=== PATIENT | male | born 1960 | race Caucasian/White ===

== ENCOUNTER 2019-12-27 09:13 | Outpatient (CLI) | payer OTHER, SELFPAY ==
[2019-12-27 09:31] LABS: Hematocrit 46.5 % (42.0-52.0); Hemoglobin 15.6 g/dL (14.0-18.0)
[2019-12-27 11:55] LABS: Alanine Aminotransferase 33 U/L (4-50); Albumin Level 4.5 g/dL (3.5-5.1); Alkaline Phosphatase 89 U/L (38-126); Aspartate Amino Transferase 34 U/L (17-59); Bilirubin,Total 0.6 mg/dL (0.2-1.3); Blood Urea Nitrogen 10 mg/dL (9-20); Calcium 9.7 mg/dL (8.4-10.2); Carbon Dioxide 27 mmol/L (22-30); Chloride 100 mmol/L (98-107); Cholesterol 237 mg/dL (0-200); Estimated Glomerular Filt Rate > 60; Glucose 108 mg/dL (75-110); HDL Direct 36 mg/dL; Potassium 4.3 mmol/L (3.4-5.0); Sodium 141 mmol/L (137-145); Triglycerides 281 mg/dL (<150)
[2019-12-27 12:05] LABS: LDL Cholesterol Direct 155 mg/dL
== END 2019-12-27 09:14 | disposition home or self-care (01) ==
LOC: ANHLAB 09:15
PROVIDERS: PCP Internal Medicine; Visit Provider Internal Medicine Hematology & Oncology
DX: Z13.6 Encounter for screening for cardiovascular disorders (principal); Z79.899 Other long term (current) drug therapy; D64.9 Anemia, unspecified; E78.5 Hyperlipidemia, unspecified
CPT/HCPCS: 36415; 80053; 80061; 85014; 85018

== ENCOUNTER 2020-05-07 09:36 | Outpatient (CLI) | payer OTHER, SELFPAY ==
[2020-05-07 13:00] LABS: Prostate Specific Antigen 0.1 ng/mL (< OR = 4.0)
== END 2020-05-07 09:37 | disposition home or self-care (01) ==
PROVIDERS: Nurse Practitioner Adult Health; PCP Internal Medicine; Visit Provider Internal Medicine Hematology & Oncology
DX: C61 Malignant neoplasm of prostate (principal)
CPT/HCPCS: 36415; 84153

== ENCOUNTER 2020-06-25 09:40 | Outpatient (CLI) | payer OTHER, SELFPAY ==
[2020-06-25 10:02] LABS: Basophils Absolute Auto 0.1 K/mm3 (0.0-0.1); Basophils Percent Auto 0.9 % (0.2-1.2); Eosinophils Absolute Auto 0.5 K/mm3 (0-0.3); Eosinophils Percent Auto 5.9 % (0-4.4); Hematocrit 45.8 % (42.0-52.0); Hemoglobin 15.4 g/dL (14.0-18.0); Immature Granulocyte Absolute 0.03 K/mm3 (0.00-0.031); Immature Granulocyte Percent A 0.3 % (0-0.5); Lymphocytes Absolute Auto 1.78 K/mm3 (0.9-3.2); Lymphocytes Percent Auto 20.3 % (18.3-44.2); Mean Corpuscular HGB Conc 33.6 g/dl (32-36); Mean Corpuscular Hemoglobin 31.7 pg (26-34); Mean Corpuscular Volume 94.2 fl (80-100); Mean Platelet Volume 8.3 fl (7.4-10.4); Monocytes Absolute Auto 0.9 K/mm3 (0.1-0.6); Monocytes Percent Auto 10.4 % (2.6-8.5); Neutrophils Absolute Auto 5.4 K/mm3 (1.3-6.7); Neutrophils Percent Auto 62.2 % (45.5-73.1); Platelet Count Result 323 k/mm3 (150-375); Red Blood Count 4.86 M/mm3 (4.6-6.20); Red Cell Distribution Width 12.3 % (11.5-14.5); White Blood Count 8.8 K/mm3 (4.5-10.0)
[2020-06-25 12:45] LABS: Alanine Aminotransferase 27 U/L (4-50); Albumin Level 4.5 g/dL (3.5-5.1); Alkaline Phosphatase 87 U/L (38-126); Anion Gap 13.4 mmol/L (7-16); Aspartate Amino Transferase 30 U/L (17-59); Bilirubin,Total 0.5 mg/dL (0.2-1.3); Blood Urea Nitrogen 17 mg/dL (9-20); Calcium 9.4 mg/dL (8.4-10.2); Carbon Dioxide 26 mmol/L (22-30); Chloride 102 mmol/L (98-107); Cholesterol 214 mg/dL (0-200); Estimated Glomerular Filt Rate > 60; Glucose 116 mg/dL (75-110); HDL Direct 34 mg/dL; Potassium 4.4 mmol/L (3.4-5.0); Sodium 137 mmol/L (137-145); Triglycerides 245 mg/dL (<150)
[2020-06-25 12:55] LABS: LDL Cholesterol Direct 130 mg/dL
[2020-06-25 13:12] LABS: Prostate Specific Antigen 0.1 ng/mL (< OR = 4.0)
== END 2020-06-25 09:41 | disposition home or self-care (01) ==
PROVIDERS: PCP Internal Medicine; Visit Provider Internal Medicine Hematology & Oncology
DX: E78.2 Mixed hyperlipidemia (principal); Z79.899 Other long term (current) drug therapy; D64.9 Anemia, unspecified; Z12.5 Encounter for screening for malignant neoplasm of prostate
CPT/HCPCS: 36415; 80053; 80061; 82248; 84153; 85025

== ENCOUNTER 2020-07-28 10:39 | Outpatient (CLI) | payer OTHER, SELFPAY ==
[2020-07-30 19:52] LABS: PSA, Free <0.01 ng/mL; PSA, Total 0.1 ng/mL (<=4.0)
== END 2020-07-28 10:40 | disposition home or self-care (01) ==
PROVIDERS: PCP Internal Medicine; Visit Provider Radiology Radiation Oncology
DX: C61 Malignant neoplasm of prostate (principal)
CPT/HCPCS: 36415; 84153; 84154

== ENCOUNTER 2020-12-25 09:18 | Outpatient (CLI) | payer OTHER, SELFPAY ==
[2020-12-25 09:36] LABS: Basophils Absolute Auto 0.1 K/mm3 (0.0-0.1); Basophils Percent Auto 0.9 % (0.2-1.2); Eosinophils Absolute Auto 0.5 K/mm3 (0-0.3); Eosinophils Percent Auto 5.6 % (0-4.4); Hematocrit 44.3 % (42.0-52.0); Hemoglobin 14.8 g/dL (14.0-18.0); Immature Granulocyte Absolute 0.04 K/mm3 (0.00-0.031); Immature Granulocyte Percent A 0.5 % (0-0.5); Lymphocytes Absolute Auto 2.05 K/mm3 (0.9-3.2); Lymphocytes Percent Auto 24.3 % (18.3-44.2); Mean Corpuscular HGB Conc 33.4 g/dl (32-36); Mean Corpuscular Hemoglobin 31.8 pg (26-34); Mean Corpuscular Volume 95.1 fl (80-100); Mean Platelet Volume 8.5 fl (7.4-10.4); Monocytes Absolute Auto 0.8 K/mm3 (0.1-0.6); Neutrophils Percent Auto 58.7 % (45.5-73.1); Platelet Count Result 317 k/mm3 (150-375); Red Blood Count 4.66 M/mm3 (4.6-6.20); Red Cell Distribution Width 12.2 % (11.5-14.5); White Blood Count 8.4 K/mm3 (4.5-10.0)
[2020-12-25 11:13] LABS: Alanine Aminotransferase 24 U/L (4-50); Albumin Level 4.2 g/dL (3.5-5.1); Alkaline Phosphatase 78 U/L (38-126); Anion Gap 9 mmol/L (8-16); Aspartate Amino Transferase 29 U/L (17-59); Bilirubin,Total 0.7 mg/dL (0.2-1.3); Blood Urea Nitrogen 15 mg/dL (9-20); Calcium 9.2 mg/dL (8.4-10.2); Carbon Dioxide 26 mmol/L (22-30); Chloride 107 mmol/L (98-107); Cholesterol 145 mg/dL (0-200); Estimated Glomerular Filt Rate > 60; Glucose 110 mg/dL (75-110); HDL Direct 35 mg/dL; Potassium 4.2 mmol/L (3.4-5.0); Sodium 142 mmol/L (137-145); Triglycerides 157 mg/dL (<150)
[2020-12-25 13:13] LABS: LDL Cholesterol Direct 82 mg/dL
[2020-12-25 13:34] LABS: Prostate Specific Antigen 0.1 ng/mL (< OR = 4.0)
[2020-12-25 13:38] LABS: Hemoglobin A1C 5.8 % (<5.7)
== END 2020-12-25 09:19 | disposition home or self-care (01) ==
PROVIDERS: PCP Internal Medicine; Visit Provider Nurse Practitioner
DX: D64.9 Anemia, unspecified (principal); R73.02 Impaired glucose tolerance (oral); E78.2 Mixed hyperlipidemia; Z85.46 Personal history of malignant neoplasm of prostate
CPT/HCPCS: 36415; 80053; 80061; 83036; 84153; 85025

== ENCOUNTER 2021-07-05 09:33 | Outpatient (CLI) | payer OTHER, SELFPAY ==
[2021-07-05 10:55] LABS: Alanine Aminotransferase 40 U/L (4-50); Albumin Level 4.7 g/dL (3.5-5.1); Alkaline Phosphatase 90 U/L (38-126); Anion Gap 7 mmol/L (8-16); Aspartate Amino Transferase 39 U/L (17-59); Bilirubin,Total 0.7 mg/dL (0.2-1.3); Blood Urea Nitrogen 17 mg/dL (9-20); Calcium 9.7 mg/dL (8.4-10.2); Carbon Dioxide 26 mmol/L (22-30); Chloride 102 mmol/L (98-107); Cholesterol 205 mg/dL (0-200); Estimated Glomerular Filt Rate > 60; Glucose 111 mg/dL (65-110); HDL Direct 38 mg/dL; Potassium 4.3 mmol/L (3.4-5.0); Sodium 135 mmol/L (137-145); Triglycerides 269 mg/dL (<150)
[2021-07-05 11:06] LABS: LDL Cholesterol Direct 105 mg/dL
[2021-07-05 11:17] LABS: Prostate Specific Antigen 0.3 ng/mL (< OR = 4.0)
== END 2021-07-05 09:34 | disposition home or self-care (01) ==
PROVIDERS: PCP Internal Medicine; Visit Provider Nurse Practitioner
DX: E78.5 Hyperlipidemia, unspecified (principal); Z12.5 Encounter for screening for malignant neoplasm of prostate; Z85.46 Personal history of malignant neoplasm of prostate
CPT/HCPCS: 36415; 80053; 80061; 84153

== ENCOUNTER 2021-08-25 15:59 | Emergency (ER) | payer OTHER, SELFPAY ==
--- NOTE | ~2021-08-25 | XR_ITS ---
EXAMINATION: XR hip RT 2V w AP pelvis EXAM DATE: 08/25/2021 16:41 INDICATION: No known recent injury provided at this time. Pain of the right hip. TECHNIQUE: Right hip frontal, 'frog leg' projections for interpretation. Frontal projection pelvis. There is no prior study for comparison. FINDINGS: Smooth right hip femoral head contour, no radiographic evidence of avascular necrosis. The re are no acute fractures or dislocations identified. There is no subcutaneous gas. The soft tissue is unremarkable. There are no radiopaque foreign bodies. There is mild bilateral hip primary oste oarthritis. IMPRESSION: Mild symmetric bilateral hip osteoarthritis. Reviewed, dictated and finalized at location A.
[2021-08-25 16:44] VITALS: BP 147/84; PULSE 81; RESP 14; TEMP 36.6; O2SAT 99
--- NOTE | 2021-08-25 18:03 | ED.LOWEXIN ---
HPI - Extremity Injury (Lower) General Chief Complaint: Extremity Injury, Lower Stated Complaint: right hip pain Time Seen by Provider: 08/25/21 17:59 Source: patient, family and RN notes reviewed Mode of arrival: ambulatory Limitations: no limitations History of Present Illness HPI Narrative: 3 days ago patient was working in his backyard with a lot of lifting and pushing, 50 to 100 pound weight, later at that day started having pain at the right iliac crest laterally and lateral side of the right thigh. Worse with certain movement, better with certain positions. Patient denies any fever, chills, nausea, vomiting, bowel dysfunction, bladder dysfunction, altered sensation, focal weakness, or saddle numbness, Related Data Home Medications Medication Instructions Recorded Confirmed cholecalciferol (vitamin D3) 50 2,000 unit PO DAILY 01/01/20 08/24/21 mcg (2,000 unit) capsule tadalafil 20 mg tablet 20 mg PO DAILY PRN 01/01/20 08/24/21 Allergies Allergy/AdvReac Type Severity Reaction Status Date / Time No Known Allergies Allergy Unknown Verified 08/24/21 11:19 Review of Systems Review of Systems: CONSTITUTIONAL: Denies fever, chills, or sweats. EYES: Denies visual changes, redness, or discharge. ENT: Denies rhinorrhea, congestion, sore throat, or otalgia. CARDIOVASCULAR: Denies chest pain, palpitations, or edema. RESPIRATORY: Denies cough or dyspnea. GASTROINTESTINAL: Denies abdominal pain, nausea, vomiting, or diarrhea. GENITOURINARY: Denies dysuria or hematuria. SKIN: Denies rash or itching. MUSCULOSKELETAL: Denies back pain, joint pain, or myalgia. NEUROLOGIC: Denies headache, numbness, or weakness. PSYCHIATRIC: Denies anxiety or depression. [facility] Past Medical History Medical History Chronic GERD History of prostate cancer Hx of malignant neoplasm of prostate Mixed hyperlipidemia Surgical History Surgical History History of prostatectomy Family History Family History Mother Breast cancer Father Pancreatic cancer Social History Social History Smoking packs per day: 1 Smoking cigarettes per day: 20.0 Years smoked: 15 Smoking pack-years: 15.00 Smoking status: Former smoker Tobacco type: cigarettes Second hand tobacco smoke exposure: Yes Smoking end date: 11/20/86 Alcohol intake: current Alcohol use details: social Substance use: never Substance use type: does not use Additional occupation/education comments: [employer] Gender identity (if verbalized by the patient): Male Sexual Orientation (if Verbalized by the Patient): Straight or Heterosexual Exam Narrative: General appearance: Well-developed, well-nourished Skin: Normal color Head: Normocephalic, nontraumatic Eyes: Clear conjunctiva ENT: Oropharynx normal, ears normal, nose normal Neck: Supple, nontender Chest and respiratory: Airway patent, no respiratory distress, no accessory muscle use Heart: Regular rate/rhythm Abdomen: Soft, nontender, no organomegaly, quiet bowel sounds Vascular: Normal peripheral pulses, normal capillary refill. Musculoskeletal: Slight limited range of motion of right hip. Neurologic: Alert and oriented ?3, [employer] is normal as tested, no gross motor deficit Course Course Emergency Course: Stable Vital Signs Vital signs: Vital Signs Temperature 36.6 C 08/25/21 16:44 Pulse Rate 81 08/25/21 16:44 Respiratory Rate 14 08/25/21 16:44 Bloo
[2021-08-25] MEDS: KETOROLAC (*BKC) 60 MG/2 ML VIAL IM (18:51)
== END 2021-08-25 19:07 | disposition home or self-care (01) ==
PROVIDERS: Emergency Provider Emergency Medicine; PCP Internal Medicine
DX: S73.101A Unspecified sprain of right hip, initial encounter (principal); M79.601 Pain in right arm; M16.0 Bilateral primary osteoarthritis of hip; Z87.891 Personal history of nicotine dependence; K21.9 Gastro-esophageal reflux disease without esophagitis; E78.5 Hyperlipidemia, unspecified; Z85.46 Personal history of malignant neoplasm of prostate; X50.0XXA Overexertion from strenuous movement or load, initial encounter
CPT/HCPCS: 73502; 96372; 99283; J1885

== ENCOUNTER 2022-01-14 10:12 | Outpatient (CLI) | payer OTHER, SELFPAY ==
[2022-01-14 16:00] LABS: Alanine Aminotransferase 26 U/L (4-50); Albumin Level 4.4 g/dL (3.5-5.1); Alkaline Phosphatase 79 U/L (38-126); Anion Gap 7 mmol/L (8-16); Aspartate Amino Transferase 30 U/L (17-59); Bilirubin,Total 0.8 mg/dL (0.2-1.3); Blood Urea Nitrogen 17 mg/dL (9-20); Calcium 9.1 mg/dL (8.4-10.2); Carbon Dioxide 25 mmol/L (22-30); Chloride 107 mmol/L (98-107); Cholesterol 152 mg/dL (0-200); Estimated Glomerular Filt Rate > 60; Glucose 111 mg/dL (65-110); HDL Direct 31 mg/dL; Potassium 4.2 mmol/L (3.4-5.0); Sodium 139 mmol/L (137-145); Triglycerides 158 mg/dL (<150)
[2022-01-14 16:11] LABS: LDL Cholesterol Direct 80 mg/dL
[2022-01-14 16:16] LABS: Vitamin D 25 Hydroxy 20.9 ng/mL
[2022-01-14 16:30] LABS: Prostate Specific Antigen 0.3 ng/mL (< OR = 4.0)
== END 2022-01-14 10:13 | disposition home or self-care (01) ==
LOC: ANHLAB 10:13
PROVIDERS: Radiology Radiation Oncology; PCP Internal Medicine; Visit Provider Internal Medicine Hematology & Oncology
DX: E78.2 Mixed hyperlipidemia (principal); Z13.21 Encounter for screening for nutritional disorder; C61 Malignant neoplasm of prostate; Z79.899 Other long term (current) drug therapy
CPT/HCPCS: 36415; 80053; 80061; 82306; 84153

== ENCOUNTER 2022-07-29 10:03 | Outpatient (CLI) | payer OTHER, SELFPAY ==
[2022-07-29 13:16] LABS: Alanine Aminotransferase 30 U/L (6-50); Albumin Level 5.1 g/dL (3.5-5.1); Alkaline Phosphatase 87 U/L (38-126); Anion Gap 15 mmol/L (8-16); Aspartate Amino Transferase 36 U/L (17-59); Blood Urea Nitrogen 13 mg/dL (9-20); Calcium 9.7 mg/dL (8.4-10.2); Carbon Dioxide 27 mmol/L (22-30); Chloride 99 mmol/L (98-107); Cholesterol 193 mg/dL (0-200); Estimated Glomerular Filt Rate > 60; Glucose 128 mg/dL (65-110); HDL Direct 38 mg/dL; Potassium 4.2 mmol/L (3.4-5.0); Sodium 141 mmol/L (137-145); Triglycerides 167 mg/dL (<150)
[2022-07-29 13:27] LABS: LDL Cholesterol Direct 111 mg/dL
[2022-07-29 13:32] LABS: Vitamin D 25 Hydroxy 28.4 ng/mL
[2022-08-01 19:33] LABS: PSA, Free 0.06 ng/mL; PSA, Total 0.5 ng/mL (<=4.0)
== END 2022-07-29 10:04 | disposition home or self-care (01) ==
LOC: ANHLAB 10:03
PROVIDERS: Nurse Practitioner; PCP Internal Medicine; Visit Provider Internal Medicine
DX: Z85.46 Personal history of malignant neoplasm of prostate (principal); E55.9 Vitamin D deficiency, unspecified; E78.5 Hyperlipidemia, unspecified
CPT/HCPCS: 36415; 80053; 80061; 82306; 84153; 84154

== ENCOUNTER 2022-08-01 11:54 | Emergency (ER) | payer OTHER, SELFPAY ==
--- NOTE | ~2022-08-01 | XR_ITS ---
EXAMINATION: XR lumbar spine 2-3V DATE: 08/01/2022 13:22 INDICATION: Low back pain. TECHNIQUE: 3 views of lumbar spine were obtained. COMPARISON: CT abdomen and pelvis 02/24/2017 FINDINGS: There is 6 degrees dextrocurvature of thoracolumbar spine. Vertebral body heights are mona l. There is mildly decreased disc height at L2-L3 and L4-L5 and severely decreased disc height at L5- S1. There is multilevel facet joint osteoarthritis, severe in lower lumbar spine. IMPRESSION: 1. Severe lower lumbar spondylosis. Reviewed, dictated and finalized at location A.
--- NOTE | ~2022-08-01 | XR_ITS ---
EXAMINATION: XR thoracic spine 3V DATE: 08/01/2022 13:22 INDICATION: Mid back pain. TECHNIQUE: 3 views of thoracic spine were obtained. COMPARISON: None. FINDINGS: There is 15 degrees levoscoliosis of thoracic spine. Vertebral body heights are normal. The re is mildly decreased disc height at multiple levels. There are endplate osteophytes at multiple lev els. There is multilevel mild facet joint osteoarthritis. IMPRESSION: 1. Mild thoracic spondylosis. 2. Thoracic levoscoliosis. Reviewed, dictated and finalized at location A.
[2022-08-01 12:06] VITALS: BP 138/99; PULSE 93; RESP 18; TEMP 36.8; O2SAT 98
--- NOTE | 2022-08-01 13:40 | ED.BACK ---
HPI - Back Pain/Injury General Chief Complaint: Back Pain/Injury Stated Complaint: back pain Time Seen by Provider: 08/01/22 12:44 History of Present Illness HPI Narrative: 62-year-old male presented the emergency room with gradual onset of low back pain and midthoracic back pain. Patient has significant history of prostate cancer with radiation and surgical excision. Patient states that low back pain is worse with certain movements. Denies any known injury or trauma. Denies dysuria. Has been taking naproxen with little relief. States has a history of similar symptoms, which she was given a muscle relaxer for. Related Data Home Medications Medication Instructions Recorded Confirmed cholecalciferol (vitamin D3) 50 2,000 unit PO DAILY 01/01/20 05/03/22 mcg (2,000 unit) capsule Allergies Allergy/AdvReac Type Severity Reaction Status Date / Time No Known Allergies Allergy Unknown Verified 08/01/22 12:42 Review of Systems Review of Systems: CONSTITUTIONAL: Denies fever, chills, or sweats. EYES: Denies visual changes, redness, or discharge. ENT: Denies rhinorrhea, congestion, sore throat, or otalgia. CARDIOVASCULAR: Denies chest pain, palpitations, or edema. RESPIRATORY: Denies cough or dyspnea. GASTROINTESTINAL: Denies abdominal pain, nausea, vomiting, or diarrhea. GENITOURINARY: Denies dysuria or hematuria. SKIN: Denies rash or itching. MUSCULOSKELETAL: Reports low back pain NEUROLOGIC: Denies headache, numbness, dizziness, or weakness. PSYCHIATRIC: Denies anxiety or depression. [facility] Past Medical History Medical History Chronic GERD History of prostate cancer Hx of malignant neoplasm of prostate Mixed hyperlipidemia Surgical History Surgical History History of prostatectomy Family History Family History Mother Breast cancer Father Pancreatic cancer Social History Social History Smoking packs per day: 1 Smoking cigarettes per day: 20.0 Years smoked: 15 Smoking pack-years: 15.00 Smoking status: Never smoker Tobacco type: cigarettes Second hand tobacco smoke exposure: No Smoking end date: 11/20/86 Alcohol intake: current Alcohol use details: social Substance use: never Substance use type: does not use Additional occupation/education comments: [employer] Gender identity (if verbalized by the patient): Male Sexual Orientation (if Verbalized by the Patient): Straight or Heterosexual Exam Narrative: GENERAL: Well-appearing, well-nourished, no physical limitations, and in no acute distress. HEAD: Normocephalic, atraumatic. EYES: Conjunctivae normal, PERRLA and EOMI. CHEST: Clear to auscultation. No respiratory distress. No wheezes rales or rhonchi. No tenderness. HEART: Regular rate and rhythm. No murmur heard. Normal peripheral pulses. BACK: No midline cervical/thoracic/lumbar tenderness, no step-offs, no bony abnormality; FROM. Tenderness over the thoracolumbar fascia and parathoracic spinal muscles EXTREMITIES: Normal range of motion. No edema. No clubbing or cyanosis SKIN: Warm, dry, no rash. No noted wounds NEURO: No focal deficits. Alert and oriented x3. MAEW. CN's II-XI intact bilaterally, normal gait PSYCH: Cooperative. Normal mood and affect. Course Vital Signs Vital signs: Vital Signs Temperature 36.8 C 08/01/22 12:06 Pulse Rate 93 08/01/22 12:06 Respiratory Rate 18 08/01/22 12:06 Blood Pressure 138/99 H 08/01/22 12:06 Pulse Oximetry 98 08/01/22 12:06 Oxygen Delivery Room Air 08/01/22 12:06 Temperature 36.8 C 08/01/22 12:06 Pulse Rate 93 08/01/22 12:06 Respiratory Rate 18 08/01/22 12:06 Blood Pressure 138/99 H 08/01/22 12:06 Pulse Oximetry 98
[2022-08-01 14:21] VITALS: BP 139/87; PULSE 89; RESP 18; O2SAT 99
== END 2022-08-01 14:24 | disposition home or self-care (01) ==
PROVIDERS: Emergency Provider Nurse Practitioner Family; PCP Internal Medicine
DX: S39.012A Strain of muscle, fascia and tendon of lower back, initial encounter (principal); X58.XXXA Exposure to other specified factors, initial encounter; E78.2 Mixed hyperlipidemia; K21.9 Gastro-esophageal reflux disease without esophagitis; Z85.46 Personal history of malignant neoplasm of prostate; Z92.3 Personal history of irradiation; Z90.79 Acquired absence of other genital organ(s); Z87.891 Personal history of nicotine dependence
CPT/HCPCS: 72072; 72100; 99283

== ENCOUNTER 2022-08-14 07:43 | Outpatient (CLI) | payer OTHER, SELFPAY ==
--- NOTE | ~2022-08-14 | MR_ITS ---
EXAMINATION: MR lumbar spine wo/w con DATE: 08/14/2022 09:06 INDICATION: Back pain. Prostate cancer. TECHNIQUE: Magnetic resonance imaging (MRI) of the lumbar spine was performed without and with 14 mL MultiHance intravenous contrast. COMPARISON: Lumbar spine radiographs 08/01/2022 FINDINGS: There is 11 degrees dextroscoliosis of thoracolumbar spine. Vertebral body heights are norm al. There is fatty marrow in L5 and in the sacrum and iliac bones, consistent with changes of radiati on therapy. There is mildly decreased disc height at L2-L3 and severely decreased disc height at L5-S 1. The distal spinal cord signal intensity is normal. The conus medullaris is at L1-L2. The following disc levels are specifically discussed: L1-L2: The disc does not extend beyond the endplate margin. There is mild bilateral facet joint osteo arthritis. There is no neural foraminal stenosis. There is no central canal stenosis. L2-L3: The disc is bulging. There is mild bilateral facet joint osteoarthritis. There is mild bilater al neural foraminal stenosis. There is mild central canal stenosis. L3-L4: The disc does not extend beyond the endplate margin. There is mild bilateral facet joint osteo arthritis. There is no neural foraminal stenosis. There is no central canal stenosis. L4-L5: The disc is bulging. There is moderate bilateral facet joint osteoarthritis. There is mild delmy ateral neural foraminal stenosis. There is mild central canal stenosis. L5-S1: The disc is bulging and has an annular fissure. There is moderate right and mild left facet jamshid int osteoarthritis. There is mild bilateral neural foraminal stenosis. There is mild central canal st enosis. IMPRESSION: 1. Severe lower lumbar spondylosis. 2. No evidence of metastatic disease. 3. Thoracolumbar dextroscoliosis. Reviewed, dictated and finalized at location A.
== END 2022-08-14 07:44 | disposition home or self-care (01) ==
PROVIDERS: PCP Internal Medicine; Visit Provider Radiology Radiation Oncology
DX: M47.816 Spondylosis without myelopathy or radiculopathy, lumbar region (principal); Z85.46 Personal history of malignant neoplasm of prostate; M54.40 Lumbago with sciatica, unspecified side; M41.9 Scoliosis, unspecified
CPT/HCPCS: 72158; A9577

== ENCOUNTER 2022-11-16 14:09 | Emergency (ER) | payer OTHER, SELFPAY ==
--- NOTE | ~2022-11-16 | XR_ITS ---
EXAMINATION: XR chest 2V DATE: 11/16/2022 15:40 INDICATION: Shortness of breath and cough TECHNIQUE: PA and lateral views of the chest are obtained. COMPARISON: 10/08/2018 FINDINGS: The lungs are free of acute opacities. No pleural effusion or pneumothorax. The cardiomedia stinal silhouette is normal. There is moderate thoracic spondylosis. IMPRESSION: 1. No acute cardiopulmonary abnormality. Reviewed, dictated and finalized at location B. 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
[2022-11-16 14:47] VITALS: BP 143/81; PULSE 64; RESP 16; TEMP 36.9; O2SAT 98
--- NOTE | 2022-11-16 14:47 | ECG_ITS ---
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
[2022-11-16 15:09] LABS: Basophils Absolute Auto 0.1 K/mm3 (0.0-0.1); Basophils Percent Auto 1.1 % (0.2-1.2); Eosinophils Absolute Auto 0.7 K/mm3 (0-0.3); Eosinophils Percent Auto 8.6 % (0-4.4); Hemoglobin 14.9 g/dL (14.0-18.0); Immature Granulocyte Absolute 0.03 K/mm3 (0.00-0.031); Immature Granulocyte Percent A 0.4 % (0-0.5); Lymphocytes Absolute Auto 1.73 K/mm3 (0.9-3.2); Lymphocytes Percent Auto 21.8 % (18.3-44.2); Mean Corpuscular HGB Conc 33.1 g/dl (32-36); Mean Corpuscular Hemoglobin 31.9 pg (26-34); Mean Corpuscular Volume 96.4 fl (80-100); Mean Platelet Volume 8.5 fl (7.4-10.4); Monocytes Absolute Auto 0.9 K/mm3 (0.1-0.6); Monocytes Percent Auto 10.8 % (2.6-8.5); Neutrophils Absolute Auto 4.6 K/mm3 (1.3-6.7); Neutrophils Percent Auto 57.3 % (45.5-73.1); Platelet Count Result 329 k/mm3 (150-375); Red Blood Count 4.67 M/mm3 (4.6-6.20); Red Cell Distribution Width 12.4 % (11.5-14.5)
[2022-11-16 15:28] LABS: Alanine Aminotransferase 35 U/L (6-50); Albumin Level 4.6 g/dL (3.5-5.1); Alkaline Phosphatase 84 U/L (38-126); Anion Gap 6 mmol/L (8-16); Aspartate Amino Transferase 34 U/L (17-59); Bilirubin,Total 0.6 mg/dL (0.2-1.3); Blood Urea Nitrogen 16 mg/dL (9-20); Calcium 9.3 mg/dL (8.4-10.2); Carbon Dioxide 30 mmol/L (22-30); Chloride 103 mmol/L (98-107); Estimated CRCL calculation 62 ml/min; Estimated Glomerular Filt Rate > 60; Glucose 96 mg/dL (65-110); Potassium 4.2 mmol/L (3.4-5.0); Sodium 139 mmol/L (137-145)
[2022-11-16 15:44] LABS: Influenza A QL RT-PCR Negative (Negative); Influenza B QL RT-PCR Negative (Negative); SARS-CoV-2 RNA PCR Negative
[2022-11-16 17:00] VITALS: BP 129/84; PULSE 64; RESP 19; O2SAT 100
--- NOTE | 2022-11-16 17:37 | ED.SOB ---
HPI - SOB/Dyspnea General Chief Complaint: Shortness of Breath/Dyspnea Stated Complaint: RESP ISSUES,COUGH FOR WEEKS Time Seen by Provider: 11/16/22 17:18 History of Present Illness HPI Narrative: Patient is a 62-year-old male with a history of prostate cancer in remission, GERD, hyperlipidemia presenting with wheezing and shortness of breath. Patient states that for the last couple of months he has been having respiratory problems characterized by cough and wheezing. States he is also had eye and nose drainage. Last night he felt so short of breath that he almost called 911. Patient's reports he was wheezing loudly last night. Denies fevers or chills, headache, chest pain, abdominal pain, nausea or vomiting, diarrhea, dysuria, leg swelling. Related Data Home Medications Medication Instructions Recorded Confirmed cholecalciferol (vitamin D3) 50 2,000 unit PO DAILY 01/01/20 11/17/22 mcg (2,000 unit) capsule Allergies Allergy/AdvReac Type Severity Reaction Status Date / Time mold Allergy Dyspnea / Verified 11/17/22 11:19 SOB Review of Systems Review of Systems: All systems reviewed & are unremarkable except as noted in HPI and below PMFSH Past Medical History Medical History Chronic GERD History of prostate cancer Hx of malignant neoplasm of prostate Mixed hyperlipidemia Surgical History Surgical History History of prostatectomy Family History Family History Sibling Family history of suicide Family history of malignant neoplasm of breast in first degree relative Patient's sister is Patient's brother is Family history of malignant neoplasm of breast Father Family history of pancreatic cancer Patient's father is Mother Family history of malignant neoplasm of breast in first degree relative Patient's mother is Family history of malignant neoplasm of breast Mother Breast cancer Father Pancreatic cancer Social History Social History Smoking packs per day: 1 Smoking cigarettes per day: 20.0 Years smoked: 15 Smoking pack-years: 15.00 Smoking status: Never smoker Tobacco type: cigarettes Second hand tobacco smoke exposure: No Smoking end date: 11/20/86 Alcohol intake: current Alcohol use details: social Substance use: never Substance use type: does not use Lack of Transportation: No Lack of Food: Never True Current Housing: I Have Housing Concerned About Future Housing: No Difficulty Paying Gas/Electric Bills: No Difficulty Paying for Meds: No Currently Unemployed: No Education: High School Diploma/GED Difficulty w/ Childcare or Family Care: No Additional occupation/education comments: [employer] Gender identity (if verbalized by the patient): Male Sexual Orientation (if Verbalized by the Patient): Straight or Heterosexual Exam Narrative: GENERAL: Well-appearing, well-nourished, and in no acute distress. HEAD: Normocephalic, atraumatic. EYES: PERRLA and EOMI. ENT: Nares clear, no rhinorrhea or epistaxis. Mucous membranes moist. NECK: Supple. CHEST: Wheezing diffusely. No respiratory distress. HEART: Regular rate and rhythm. No murmur heard. Normal peripheral pulses. ABDOMEN: Soft, nontender, nondistended, normal active bowel sounds. EXTREMITIES: Normal range of motion. No edema. SKIN: Warm, dry, no rash. NEURO: No focal deficits. Alert and oriented x3. PSYCH: Normal mood and affect. Course Vital Signs Vital signs: Vital Signs Temperature 98.5 F 11/16/22 14:47 Pulse Rate 64 11/16/22 14:47 Respiratory Rate 16 11/16/22 14:47 Blood Pressure 143/81 H 11/16/22 14:47 Pulse
[2022-11-16 17:45] VITALS: BP 129/81; PULSE 66; RESP 17; O2SAT 100
[2022-11-16] MEDS: methylPREDNISolone SOD SUCC 125 MG VIAL IV PUSH (18:06)
[2022-11-16] MEDS: ALBUTEROL SULFATE NEB 2.5 MG/3 ML INH 10 MG INHALATION (18:20)
[2022-11-16] MEDS: IPRATROPIUM BR 0.02% INH SOLN 0.5 MG/2.5 ML VIAL INHALATION (18:21)
[2022-11-16 18:25] VITALS: PULSE 59; RESP 19
[2022-11-16 19:03] VITALS: PULSE 75; RESP 18; O2SAT 100
[2022-11-16 19:47] VITALS: BP 132/67; PULSE 104; RESP 15; O2SAT 100
== END 2022-11-16 19:58 | disposition home or self-care (01) ==
PROVIDERS: Emergency Provider Emergency Medicine; PCP Internal Medicine
DX: R06.2 Wheezing (principal); R06.02 Shortness of breath; Z20.822 Contact with and (suspected) exposure to COVID-19; E78.2 Mixed hyperlipidemia; K21.9 Gastro-esophageal reflux disease without esophagitis; Z85.46 Personal history of malignant neoplasm of prostate; Z90.79 Acquired absence of other genital organ(s); Z87.891 Personal history of nicotine dependence
CPT/HCPCS: 36415; 71046; 80053; 85025; 87636; 93005; 94640; 96374; 99284; J2930

== ENCOUNTER 2023-03-30 09:21 | Outpatient (CLI) | payer OTHER, SELFPAY ==
[2023-03-30 10:00] LABS: Alanine Aminotransferase 33 U/L (6-50); Albumin Level 4.9 g/dL (3.5-5.1); Alkaline Phosphatase 97 U/L (38-126); Anion Gap 10 mmol/L (8-16); Aspartate Amino Transferase 38 U/L (17-59); Bilirubin,Total 0.7 mg/dL (0.2-1.3); Blood Urea Nitrogen 19 mg/dL (9-20); Calcium 9.3 mg/dL (8.4-10.2); Carbon Dioxide 28 mmol/L (22-30); Chloride 103 mmol/L (98-107); Cholesterol 169 mg/dL (0-200); Estimated Glomerular Filt Rate > 60; Glucose 123 mg/dL (65-110); HDL Direct 35 mg/dL; Potassium 4.2 mmol/L (3.4-5.0); Sodium 141 mmol/L (137-145); Triglycerides 154 mg/dL (<150)
[2023-03-30 10:13] LABS: LDL Cholesterol Direct 92 mg/dL
[2023-03-30 11:24] LABS: Vitamin D 25 Hydroxy 39.2 ng/mL
== END 2023-03-30 09:22 | disposition home or self-care (01) ==
PROVIDERS: PCP Nurse Practitioner; Visit Provider Urology
DX: C61 Malignant neoplasm of prostate (principal); E78.5 Hyperlipidemia, unspecified; E55.9 Vitamin D deficiency, unspecified
CPT/HCPCS: 36415; 80053; 80061; 82306; 84153

== ENCOUNTER 2023-10-06 08:27 | Outpatient (CLI) | payer OTHER, SELFPAY ==
[2023-10-06 09:27] LABS: Alanine Aminotransferase 34 U/L (6-50); Albumin Level 4.5 g/dL (3.5-5.1); Alkaline Phosphatase 88 U/L (38-126); Anion Gap 13 mmol/L (8-16); Aspartate Amino Transferase 45 U/L (17-59); Bilirubin,Total 1.2 mg/dL (0.2-1.3); Blood Urea Nitrogen 14 mg/dL (9-20); Calcium 9.2 mg/dL (8.4-10.2); Carbon Dioxide 24 mmol/L (22-30); Chloride 104 mmol/L (98-107); Cholesterol 142 mg/dL (0-200); Estimated Glomerular Filt Rate > 60; Glucose 99 mg/dL (65-110); HDL Direct 30 mg/dL; Potassium 3.8 mmol/L (3.4-5.0); Sodium 141 mmol/L (137-145); Triglycerides 117 mg/dL (<150)
[2023-10-06 09:36] LABS: Hemoglobin A1C 5.8 % (<5.7)
[2023-10-06 09:37] LABS: LDL Cholesterol Direct 81 mg/dL
[2023-10-06 09:56] LABS: Prostate Specific Antigen 1.4 ng/mL (< OR = 4.0)
== END 2023-10-06 08:28 | disposition home or self-care (01) ==
LOC: ANHLAB 08:29
PROVIDERS: Nurse Practitioner; PCP Family Medicine; Visit Provider Internal Medicine Hematology & Oncology
DX: E78.5 Hyperlipidemia, unspecified (principal); R73.9 Hyperglycemia, unspecified; Z85.46 Personal history of malignant neoplasm of prostate; E55.9 Vitamin D deficiency, unspecified
CPT/HCPCS: 36415; 80053; 80061; 82306; 83036; 84153

== ENCOUNTER 2024-04-08 08:40 | Outpatient (CLI) | payer OTHER, MEDICARE, SELFPAY ==
[2024-04-08 10:16] LABS: Alanine Aminotransferase 26 U/L (6-50); Albumin Level 4.7 g/dL (3.5-5.1); Alkaline Phosphatase 81 U/L (38-126); Anion Gap 8 mmol/L (4-12); Aspartate Amino Transferase 34 U/L (17-59); Bilirubin,Total 0.9 mg/dL (0.2-1.3); Blood Urea Nitrogen 13 mg/dL (9-20); Calcium 9.5 mg/dL (8.4-10.2); Carbon Dioxide 25 mmol/L (22-30); Chloride 107 mmol/L (98-107); Cholesterol 197 mg/dL (0-200); Estimated Glomerular Filt Rate > 60; Glucose 117 mg/dL (65-110); HDL Direct 36 mg/dL; Sodium 140 mmol/L (137-145); Triglycerides 178 mg/dL (<150)
[2024-04-08 10:26] LABS: LDL Cholesterol Direct 115 mg/dL
[2024-04-08 10:28] LABS: Hemoglobin A1C 5.9 % (<5.7)
[2024-04-08 10:46] LABS: Prostate Specific Antigen 1.8 ng/mL (< OR = 4.0)
== END 2024-04-08 08:41 | disposition home or self-care (01) ==
LOC: ANHLAB 08:54
PROVIDERS: PCP Nurse Practitioner; Visit Provider Internal Medicine Hematology & Oncology
DX: E78.5 Hyperlipidemia, unspecified (principal); R73.9 Hyperglycemia, unspecified; Z85.46 Personal history of malignant neoplasm of prostate
CPT/HCPCS: 36415; 80053; 80061; 83036; 84153

== ENCOUNTER 2024-08-06 07:26 | Outpatient (CLI) | payer OTHER, MEDICARE, SELFPAY ==
--- NOTE | ~2024-08-06 | MR_ITS ---
EXAMINATION: MR lumbar spine wo con DATE: 08/06/2024 08:50 INDICATION: Spondylosis without myelopathy or radiculopathy. TECHNIQUE: Magnetic resonance imaging (MRI) of the lumbar spine was performed without intravenous con trast. Sequences included sagittal T2-weighted FSE, sagittal T2-weighted FS FSE, sagittal T1-weighted FSE, and axial T2-weighted FSE. COMPARISON: None FINDINGS: There is 7 degrees dextrocurvature of thoracic lumbar spine. Vertebral body heights are nor mal. There is fat replacement of the marrow in the sacrum and lower L5 vertebral body, which may be c hanges of radiation therapy. There is mildly decreased disc height at L2-L3 and severely decreased di sc height at L5-S1. The distal spinal cord signal intensity is normal. The conus medullaris is at L1. The following disc levels are specifically discussed: L1-L2: The disc does not extend beyond the endplate margin. There is mild bilateral facet joint osteo arthritis. There is no neural foraminal stenosis. There is no central canal stenosis. L2-L3: The disc is bulging and has an annular fissure. There is mild bilateral facet joint osteoarthr itis. There is mild bilateral neural foraminal stenosis. There is mild central canal stenosis. L3-L4: The disc does not extend beyond the endplate margin. There is mild bilateral facet joint osteo arthritis. There is no neural foraminal stenosis. There is no central canal stenosis. L4-L5: The disc is bulging. There is moderate right and severe left facet joint osteoarthritis. There is mild bilateral neural foraminal stenosis. There is mild central canal stenosis. L5-S1: The disc is bulging and has an annular fissure. There is severe bilateral facet joint osteoart hritis. There is mild bilateral neural foraminal stenosis. There is mild central canal stenosis. IMPRESSION: 1. Severe lower lumbar spondylosis. Reviewed, dictated and finalized at location A.
--- NOTE | ~2024-08-06 | MR_ITS ---
EXAMINATION: MR thoracic spine wo con DATE: 08/06/2024 08:42 INDICATION: Scoliosis, unspecified. Back pain. TECHNIQUE: Magnetic resonance imaging (MRI) of the thoracic spine was performed without intravenous c ontrast. COMPARISON: Thoracic spine radiographs 08/01/2022 FINDINGS: There is 12 degrees levoscoliosis of thoracic spine. There are Schmorl's nodes at multiple levels. There is mildly decreased disc height at T6-T7 and T7-T8. At T7-T8, there is a right central effusion with mild central canal stenosis. There is multilevel mild facet joint osteoarthritis. No ne ural foraminal stenosis. The spinal cord signal intensity is normal. The conus medullaris is at L1. IMPRESSION: 1. Mild thoracic spondylosis. 2. Thoracic levoscoliosis. Reviewed, dictated and finalized at location A.
== END 2024-08-06 07:27 | disposition home or self-care (01) ==
PROVIDERS: PCP Nurse Practitioner; Visit Provider Nurse Practitioner
DX: M41.84 Other forms of scoliosis, thoracic region (principal); M47.814 Spondylosis without myelopathy or radiculopathy, thoracic region; M47.816 Spondylosis without myelopathy or radiculopathy, lumbar region
CPT/HCPCS: 72146; 72148

== ENCOUNTER 2024-12-06 07:47 | Outpatient (CLI) | payer OTHER, MEDICARE, SELFPAY ==
--- NOTE | ~2024-12-06 | PE_ITS ---
EXAMINATION: PET_PETPSMAST_PT DATE: 12/06/2024 11:00 INDICATION: Prostate cancer. TECHNIQUE: 5.044 mCi of Ga-68 gozetotide was administered intravenously. Low dose computed tomography (CT) images were acquired from the base of the brain to the proximal thighs for attenuation correcti on and anatomic localization. Automated exposure control was employed. Dose-length product (DLP) was 977 mGy-cm. Positron emission tomography (PET) images were acquired in the same distribution. COMPARISON: None FINDINGS: Head/neck: There are no pathologically enlarged lymph nodes. Chest: There is mild emphysema. There is a 7 mm nodule without increased activity in right lower lobe . No pleural effusion. The heart size is normal. There are coronary artery calcifications. No pericar dial effusion. There is mild left gynecomastia. Abdomen/pelvis/proximal thighs: The liver, gallbladder, spleen, and adrenal glands are normal. There are calcifications of the pancreas, consistent with chronic pancreatitis. There are cysts in the kidn eys measuring up to 3.1 cm on the right. The prostate is absent. In the left pelvis abutting the blad carly, there is a 14 x 11 mm mass with maximum SUV of 21.3. In the prostatectomy bed on the left, there is a focus of increased activity with maximum SUV of 4.5. There is diverticulosis of the colon witho ut evidence of diverticulitis. There are no dilated loops of bowel. The appendix is normal. There are no pathologically enlarged lymph nodes. There is no free intraperitoneal fluid. There is a left ingu inal hernia containing fat. There is no osseous malignancy. IMPRESSION: 1. Left pelvic mass with increased activity and focus of increased activity in the prostatectomy bed on the left, consistent with metastatic disease. 2. 7 mm right lower lobe pulmonary nodule, probably benign. Noncontrast low-dose chest CT is recommen ded in 6 months. Reviewed, dictated and finalized at location A. RAM SEWER IMPRESSION: 1. Left pelvic mass with increased activity and focus of increased activity in the prostatectomy bed on the left, consistent with metastatic disease. 2. 7 mm right lower lobe pulmonary nodule, probably benign. Noncontrast low-dos e chest CT is recommended in 6 months.
--- OUTSIDE RECORDS SUMMARY | 2024-12-12 05:08 | XMS_ITS | Data Portability ---
Author Organization [place] [facility], Main Office Address [address] [place] [address] Care Team Providers Care Rn Perioperative Name Role Phone MARCIN BHAKTA Primary Care Provider [phone] YOBANY NIX First Assistant Manager Assessment Encounter Date Assessment Date Assessment LastModified by Organization Details LastModified Time 10/15/2024 10/15/2024 Assessment: Nicotine smoke: 1 ppd [id number] = 12 pack years Rhinitis with postnasal drip Cough Dyspnea 7 mm RLL pulmonary nodule Plan: The following were reviewed and explained to the patient: primary care/referral note Chest CT 09/09/24 7 mm RLL nodule Start Atrovent nasal spray 0.06% 1 spray to each nostril up to 4 times a day for postnasal drip. Differential diagnoses for pulmonary nodule: 1. malignant tumor 2. benign tumor 3. inflammatory processes 4. infectious process (viral, atypical bacterial, fungal, atypical mycobacterial) The Fleischner Society pulmonary nodule recommendations below pertain to the follow-up and management of indeterminate pulmonary nodules detected incidentally on CT and are published by the Fleischner Society. The guideline does not apply to lung cancer screening, patients younger than 35 years, or patients with a history of primary cancer or immunosuppression. These recommendations reflect the 2017 revision 4, which supersedes prior versions published in 2005 and 2013. Single solid nodule <6 mm (<100 mm3) *low-risk patients: no routine follow-up required *high-risk patients: optional CT at 12 months (particularly with suspicious nodule morphology and/or upper lobe location) Single solid nodule 6-8 mm (100-250 mm3) *low-risk patients: CT at 6-12 months, then consider CT at 18-24 months *high-risk patients: CT at 6-12 months, then CT at 18-24 months Single solid nodule >8 mm (>250 mm3) *low-risk and high-risk patients: consider CT at 3 months, PET/CT, or tissue sampling Repeat chest CT 08/2025. Cough/Dyspnea workup will be done as follows: Respiratory allergen panel for [facility] Serum IgE Serum total IgG, IgG1, IgG2, IgG3, IgG4 Quuxg-7-lqeaemhaet n phenotype and level TB stimulated gamma interferon B-type natriuretic peptide (BNP) Eosinophil count Complete pulmonary function testing (PFT) Advised to continue not to smoke. Continue albuterol HFA as needed. The patient does not know how to accurately administer the inhaler. Today, the patient was shown how to take this medication. The proper technique for delivering this medication was instructed. The patient expressed a clear understanding and demonstrated back how to use this medication. Without the proper technique, the patient will not reap the benefits of the treatment as the contents of the inhaler will not reach the lower airways as intended to be. Adherence to therapy is advocated. Nonadherence may lead to treatment failure, further progression of the condition, and other complications. Hospitals admissions are often the result of individuals not taking prescription medications accurately. Alternatively, greater adherence to medication regimens have shown to lower rates of hospitalization and decrease total medical costs in patients with chronic medical conditions. Advocated influenza vaccination annually and pneumonia vaccination AMELIE. Advocated weight loss through diet and exercise. Patient's ideal body weight according to height and gender is up to 160 lbs. Encouraged patient to adjust caloric intake to maintain/achieve ideal body weight, emphasizing on fruits, vegetables, whole grains, and fat-free or low-fat products. These include lean meats, poultry, fish, beans, eggs, and nuts and foods that are low in saturated fats, trans-fats, cholesterol, salt (sodium), and glycemic index. Stressed the importance of regular exercise up to the patient's capacity limits. In this case, we recommend 20 min daily walking, 2 days a week of resistance training. Patient to monitor BP daily and bring records to PCP for further management. Follow-up: 1 week after PFT Not available 10/15/2024 14:43:50 Plan of Treatment Reminders Order Date Submit Date Provider Last Modified By Organization Details Last Modified Time Details Appointments Any 15 2024 09:00A Wisam issa MD Not available Not available Not available Lab lipid panel, serum 10/03/ 2024 10/03/2 024 [facility] (Lab), [facility] [address], [place], [address], 11/07/2024 14:09:18 CMP, serum or plasma 2023 [facility] (Lab), [facility] [address], [place], [address], 11/07/2024 14:09:21 CBC w/ auto diff 2023 [facility] (Lab), [facility] [address], [place], [address], 11/07/2024 14:26:09 TSH + free T4, serum [address] (Lab), [address] [place] [address] [address], [place], [address], 11/14/2024 10:40:45 vitamin D, 25-hydrox y, total, serum [address] (Lab), [facility] [address], [place], [address], 11/14/2024 10:40:45 alpha-1-a ntitrypsi n (aat) phenotype , serum 2023 [facility] (Lab), [facility] [address], [place], [address], 10/23/2024 17:44:03 BNP (B-type natriuret ic peptide), serum or plasma 2023 024 [facility] (Lab), [facility] [address], [place], [address], 10/15/2024 18:23:49 ige, total, serum [address] (Lab), [facility] [address], [place], [address], 10/30/2024 14:19:32 tb (M tuberculo sis), ifn-gamma iman, blood [address] (Lab), [address] [place] [address], [address], 10/30/2024 14:19:32 [address] s 1+2+3+4, serum [address] (Lab), [address] [place] [address], [place], [address], 10/30/2024 14:19:32 respirato ry allergen panel, [facility] A, serum [address] (Lab), [address] [place] [address], [address], 10/30/2024 14:19:32 respirato ry allergen panel - [facility] b [address] (Lab), [address] [place] [address], [address], 10/30/2024 14:19:33 Referral urologist referral - Please call patient to schedule. 2023 [email or web address] Karan Brar, [address], [address], 08/28/2024 11:00:10 ophthalmo logist referral 2023 [email or web address] Ronnie Garcia, [address] [facility], [place], [address], 12/05/2024 15:13:10 pulmonolo gist referral - Please call patient to schedule. 2023 [email or web address] Martines MD, [address] [place], [address], 10/31/2024 10:14:38 cardiolog ist referral - Please call patient to schedule. 2023 [place], [address] [facility], [address], [place], [address], 10/08/2024 20:14:46 Procedures upper endoscopy procedure (EGD) (PROC) - Please call patient to schedule. 2023 [email or web address] Barbara Reddy MD, [address] [facility], [facility], [place], [address], 10/31/2024 10:14:23 upper endoscopy procedure (EGD) (PROC) 2023 [facility] (Pre-Screen), [address] [place], [address], 12/02/2024 13:57:55 Surgeries None recorded. Imaging US, abdominal aorta 2023 [facility] (One Call Scheduling), [address] [place], [address], 11/18/2024 15:29:34 CT, chest, w/o contrast - Please call patient to schedule. 2023 [facility] (One Call Scheduling), [address] [place], [address], 09/09/2024 13:15:20 DEXA, axial skeleton 2023 [facility] (One Call Scheduling), [address] [place], [address], 09/02/2024 11:11:50 Medication Orders ipratropi um bromide 42 mcg (0.06 %) nasal spray 2023 [facility] [address], [address] [facility], [place], [address], 10/15/2024 14:44:28 Patient TargetsNo targets recorded. Patient Instructions Encounter Date Encounter Id Patient Instructions Last Modified By Organization Details Last Modified Time 10/15/2024 [id number] complete PFT w/ post bronchodilator spirometry* - Please call patient to schedule. NPAN [id number] [facility] ref #ref #[id number] AARON Not available 11/30/2024 04:08:31 10/28/2024 [id number] PT WITH GERD SX . NEED TO R/P PUD/ H. PYLORI . RECOMMEND AN EGD RISKS BENEFITS AND COMPLICATIONS WERE EXPLAINED TO PT . ( BLEEDING , PERFORATION , INFECTION , ) PT VERBALIZES UNDERSTANDING AND IS WILLING TO PROCEDE . 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 Referring Physician: Marcin Bhakta, Internal Medicine, Encounter Date: 08/22/2024 First Assistant Manager Referral for Sc reening for cardiovascular system disease Please call patient to schedule. Referring Physician: Marcin Bhakta Internal Medicine, Encounter Date: 08/22/2024 Urologist Referral for Malig nant tumor of prostate Please call patient to schedule. Referring Physician: Marcin Bhakta Internal Medicine, Encounter Date: 08/22/2024 Manager Helpdesk Referral for Bilateral cataracts Referring Physician: Marcin Bhakta Internal Medicine, Encounter Date: 08/22/2024 Manager Helpdesk Referral for Bilateral cataracts Referring Physician: Marcin Bhakta Internal Medicine, Encounter Date: 12/05/2024 Results Created Date Observation Date Name Description Value Unit Range Abnormal Flag Note LastModifiedBy Organization Detail LastModifiedTime 08/22/20 24 08/06/2024 MRI, lumba r spine , w/o contr ast No observ ation record ed. BARCODE Not Available 2023 13:42:20 09/02/2009/02/2024 DEXA, axial skele ton [facility] [place] [address] [place] [address] Patien t Name: SUZETTE SINGER Access ion #: [id number] Sex: M : 1959 2 Dictat ed By: Ramsey Cobian Attend ing Physic iban[facility] Physic iban: VIN ALSTON Exam Date: 2023 09:54 AM Exam Name: XR DEXA-H IPS PELVIS SPINE Admitt ing Diagno sis(es ): INDICA TION: 64 years old, Male; SCREEN ING FOR OSTEOP OROSIS . post menopa usal DEXA SCAN: BONE DENSIT Y REPORT : AP SPINE (L1-L4 ) : T Score: -0.8 LEFT HIP TOTAL : T Score: -0.2 RT HIP TOTAL : T Score: -0.1 TOTAL BILAT HIP AVG: T Score: -0.1 10 YEAR FRACTU RE RISK* Major osteop orotic fractu re not report ed % Hip fractu re not report ed % IMPRES TAMIE: normal ------ ------ ------ ------ ------ ------ ------ ------ ----- *FRAX versio n 3.08. Fractu re probab ility calcul ated for an untrea dylon patien franck. Fractu re probab ility may be lower if the patien t has receiv ed treatm ent. T-scor e: compar chelsey by cameron fernandez ion (REGULO) to a young adult popula remy, miryam d for sex and ethnic ity (used for postme nopaus al women and men >50 years) and classi fied by WHO criter ia. Page 1 [facility] [address] [address] [phone] Charbel juárez Name: SUZETTE SINGER Access ion #: [id number] Sex: M : 1959 2 Dictat ed By: Ramsey Mango Attend ing Physic iban: JANE HOBBS Orderpee ng Physic iban: VIN ALSTON Exam Date: 2023 09:54 AM Exam Name: XR DEXA-H IPS PELVIS SPINE Admitt ing Diagno sis(es ): -1.0: normal <-1.0 to >-2.5: osteop enia -2.5: osteop orosis -2.5 plus fragil ity fractu re: severe osteop orosis Z-scor e: compar ed by SD to an age, sex, and ethnic ity popula tion (used for premen opausa l women, men <50 years, and childr en instea d of T-scor e WHO criter ia 4) <-2.0: below expect ed range/ low bone densit y for age, and a cause should be sought Electr onical ly Signed by: Ramsey Cobian at 2023 10:09: 11 AM Page 2 [email or web address] [facility] (Imaging) [address] [place], [address], 12/03/2024 10:08:21 09/09/20 24 09/09/2024 US, abdom inal aorta [facility] [place] [address] Patien t Name: SUZETTE SINGER [facility] ion #: [id number] Sex: M : 1959 4 Dictat ed By: Ramsey Cobian Attend ing Physic iban: VIN ALSTON Orderpee Physic iban: VIN ALSTON Exam Date: 2023 10:27 AM Exam Name: US AORTA Admitt ing Diagno sis(es ): [facility] INDICA TION: Evalua dylon for abdomi nal aortic aneury sm. smokin g histor y TECHNI QUE: Multip le sonogr aphic images of the abdomi nal aorta were obtain ed. FINDIN GS: The aorta measur es 2, 2 and NA cm in the AP diamet er, at the superi or, mid and inferi or portio ns, respec tively . The right iliac artery measur es 8mm in diamet er. The left iliac measur ed 1mm in diamet er. There is no eviden ce for athero sclero tic diseas e. There is no periao rtic fluid. IMPRES TAMIE: 1. no eviden ce for abdomi nal aortic aneury sm.> Electr onical ly Signed by: Ramsey Cobian at 2023 12:01: 20 PM Page 1 [email or web address] [facility] (One Call Scheduling) [address] [place], [address], 12/03/2024 10:08:22 09/09/20 24 09/09/2024 CT, chest , w/o contr ast [facility] [place] [id number] Patien t Name: SUZETTE SINGER Access ion #: [id number] Sex: M : 1959 4 Dictat ed By: Jayden Morfin Attend ing Physic iban: VIN ALSTON Orderi Physic iban: VIN ALSTON Exam Date: 2023 09:58 AM Exam Name: CT CHEST WO Admitt ing Diagno sis(es ): CT Chest withou t intrav enous contra st INDICA TION: chroni c cough TECHNI QUE: Multid etecto r spiral CT of the chest was perfor med from the lung apices to the upper abdome n. Axial, leon l and sagitt al multip lanar reform ats were perfor med. Radiat ion Dose : 1. Chest: CTDI volume is 41.8 mGy. Dose-l ength produc t is 856 mGy*cm The dose indica tors for CT are the volume Comput ed Tomogr aphy (CT) Dose Index (CTDIv ol) and the Dose Length Produc t (DLP), and are measur ed in units of mGy and mGy-cm , respec tively . These indica tors are not patien t dose, but values genera dylon from the CT scanne r acquis ition factor s. The report includ es radiat ion exposu re data for exposu res receiv ed during this examin ation. Compar chelsey: None Findin gs: Lower neck: Normal thyroi d. Lungs: Tree-i n-bud nodula rity in the left lung base is nonspe cific but may be infect ious or inflam matory . 0.7 cm nodule in the right lower lobe May contai n some periph eral calcif icatio n; nonspe cific. Heart/ Vascul ar Struct ures: Leon ry artery calcif icatio ns. Vascul ar calcif icatio ns of the aorta. Page 1 [facility] [address] [place] [address] Patien t Name: SUZETTE SINGER Access ion #: [id number] Sex: M : 1959 4 Dictat ed By: Jayden schaefer Morfin Attend ing Physic iban: JANE HOBBS [facility] Physic iban: VIN ALSTON Exam Date: 2023 09:58 AM Exam Name: CT CHEST WO Admitt ing Diagno sis(es ): Lymph Nodes: No adenop athy Pleura : No pleura l effusi on or signif icant pneumo thorax . Muscul oskele maurizio: No acute osseou s abnorm ality. Degene rative change s of the spine. Soft tissue s: Normal . Upper abdome n: Limite d portio ns of the upper abdome n are unrema rkable . IMPRES TAMIE: Tree-i n-bud nodula rity in the left lung base is nonspe cific but may be infect ious or inflam matory . 0.7 cm nodule in the right lower lobe May contai n some periph eral calcif icatio n; nonspe cific. Fleisc hner [employer] y pulmon jairo nodule recomm endati ons (2017) : Solita ry solid nodule 6-8 mm Low-ri sk patien ts: CT at 6-12 months , then consid er CT at 18-24 months High-r isk patien ts: CT at 6-12 months , then CT at 18-24 months Radiat ion optimi zation : All CT scans at this facili ty use at least one of these dose optimi zation techni ques: automa dylon exposu re contro l mA and/or kV adjust ment per patien t size (inclu tamara target ed exams where dose is matche d to clinic al indica tion) or iterat rick recons tructi on. Electr onical ly Signed by: Jayden Morfin at 2023 12:12: 41 PM Page [address] (Imaging) [address] [place], [address], 12/03/2024 10:08:22 10/01/20 24 10/01/2024 XR, chest , 1 view No observ ation record ed. [address] [place], [address], 12/03/2024 10:08:23 10/01/20 24 10/01/2024 CT, abdom en + pelvi s, w/o contr ast No observ ation record ed. [address] [place], [address], 12/03/2024 10:08:23 11/19/20 24 11/19/2024 imagi ng/di agnos tic resul t No observ ation record ed. [facility] [address], [place], [address], 11/19/2024 16:51:00 Result Notes None recorded. Problems Name Problem SNOMED Code Status Onset Date Resolution Date Notes Provider Name and Address Organization Details Recorded Time Closed fracture of lateral malleolus 21575534 Active Not Available [facility] 3 20:42:38 Hyperlipidemi a 79904295 Active 2023 Marcin schaefer MD [address] [facility], [address], [place], [address] , [facility] 4 10:30:02 Gastroesophag eal reflux disease without esophagitis 696527945 Active 2023 Marcin schaefer MD [address], [address], [place], [address] , [place] [facility] 4 10:31:58 Mixed anxiety and depressive disorder 809979287 Active 2023 Marcin schaefer MD [address], [address], [place], [address] , [place] [facility] 4 10:32:30 Primary erectile dysfunction 952323505 Active 2023 Marcin schaefer MD [address], [address], [place], [address] , [place] [facility] 4 10:33:34 Malignant tumor of prostate 799327776 Active 2023 Marcin schaefer MD [address], [address], [place], [address] , [facility] 4 10:55:29 Vitamin D deficiency 41769880 Active 2023 Marcin schaefer MD [address], [address], [place], [address] , [facility] 4 10:56:22 Bilateral cataracts 62442680 Active 2023 Marcin schaefer MD [address], [address], [place], [address] , [facility] 4 13:54:43 Nodule of lung 534095020 Active 2023 DILIP Zimmerman, [place] [facility] 4 12:41:32 Solitary nodule of lung 748127771 Active 2023 Filippo Martines MD [address], [address], [place], [address] , [facility] [employer] [facility] 4 14:23:31 Dyspnea on exertion 96267283 Active 2023 Filippo Martnies MD [address], [address], [place], [address] , [facility] [employer] [facility] 4 14:40:30 Posterior rhinorrhea 05458748 Active 2023 Filippo Martines MD [address], [address], [place], [address] , [facility] [employer] [facility] 4 14:43:56 Eosinophilic esophagitis 834504528 Active 2024 RICARDO Boone, [facility] [employer] [facility] 5 16:16:34 Chronic cough 91051018 Active 2024 Marcin schaefer MD [address], [place] [address], [place], [address] , [facility] [employer] [facility] 5 16:20:26 Low back pain 282463693 Active 2024 Marcin schaefer MD [address], [place] [address], [place], [address] , [facility] [employer] [facility] 5 16:20:26 Notes:Lab data 10/15/24 mult iple environmental allergies, high IgE, low IgG3 Medical History: Anxiety/Depression Bilateral cataracts COVID infection Rhinitis with postnasal drip to multiple environmental allergens IgE 1532 IU/mL Hypogammaglobulinemia (IgG3) AAT PiM_ 107 mg% 7 mm RLL nodule Hyperlipidemia URSULA Hepatic steatosis Right renal cyst Prostate ca ED Vit D deficiency Scoliosis Thoracolumbar spndylosis Procedure History: T&A 1964 Left ulnar/radial pins/plates placement 1979, 1980 Left ulnar/radial pins/plates removal 1981 Radical prostatectomy & radiotherapy 2013 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 Procedures Surgical History Date Name Laterality Status Provider Name and Address Organization Details Recorded Time Prostatectomy completed Tiffany Cunha MA [facility] 08/22/2024 09:56:45 Hemorrhoidectomy completed Tiffany Cunha [facility] [place] [facility] 08/22/2024 09:57:26 Tonsillectomy completed ESTEBAN Astudillo Ariane [facility] 08/22/2024 09:57:35 biopsy of prostate completed Tiffany Cunha [facility] [place] [employer] [facility] 08/22/2024 09:57:58 Imaging Results Imaging Date Name Status LastModified by [facility] Details LastModified Time 08/06/2024 MRI, lumbar spine, w/o contrast completed BARCODE Information not available 08/22/2024 13:42:20 09/02/2024 DEXA, axial skeleton completed [email or web address] [place] [address] (Imaging) [address] [place], [address], 12/03/2024 10:08:21 09/09/2024 US, abdominal aorta completed [id number] [place] [address] (One Call Scheduling) [address] [place], [address], 12/03/2024 10:08:22 09/09/2024 CT, chest, w/o contrast completed [address] (Imaging) [address] [place], [address], 12/03/2024 10:08:22 10/01/2024 XR, chest, 1 view completed [address] [place], [address], 12/03/2024 10:08:23 10/01/2024 CT, abdomen + pelvis, w/o contrast completed [address] [place], [address], 12/03/2024 10:08:23 11/19/2024 imaging/diagno stic result active [facility] [address], [place], [address], 11/19/2024 16:51:00 Procedure Notes None recorded. Medical Equipment None Reported. Allergies No known drug allergies Medications Name Sig Start Date Stop Date Status Note LastModified by Organization Details LastModified Time atorvastati n 40 mg tablet Take 1 tablet every day by oral route. active Not Available Not Available No t Available atorvastati n 20 mg tablet TAKE 1 TABLET BY MOUTH ONCE DAILY 12/05 completed Not Available Not Available Not Available azithromyci n 250 mg tablet TAKE 2 TABLETS BY MOUTH ON DAY 1, AND THEN TAKE 1 TABLET BY MOUTH ONCE A DAY ON DAY 2 THROUGH DAY 5 08/22 completed Not Available Not Available Not Available benzonatate 200 mg capsule TAKE 1 CAPSULE BY MOUTH THREE TIMES DAILY NEEDED FOR COUGH 08/22 completed Not Available Not Available Not Available hydrocodone 5 mg-acetamin ophen 325 mg tablet 02/16 completed Not Available Not Available Not Available meloxicam 15 mg tablet 02/16 completed Not Available Not Available Not Available prednisone 20 mg tablet 02/16 completed Not Available Not Available Not Available ciprofloxac in 500 mg tablet 02/16 completed Not Available Not Available Not Available omeprazole 40 mg capsule,del ayed release 02/16 completed Not Available Not Available Not Available tramadol 50 mg tablet 02/16 completed Not Available Not Available Not Available meloxicam 7.5 mg tablet 02/16 completed Not Available Not Available Not Available baclofen 10 mg tablet TAKE 1 TABLET BY MOUTH PRN active Not Available Not Available No t Available pantoprazol e 40 mg tablet,mary kate yed release TAKE 1 TABLET BY MOUTH IN THE MORNING active Not Available Not Available No t Available naproxen 500 mg tablet,mary kate yed release 02/16 completed Not Available Not Available Not Available montelukast 10 mg tablet 02/16 completed Not Available Not Available Not Available methylpredn isolone 4 mg tablets in a dose pack TAKE BY MOUTH DIRECTED ON INSIDE OF PACKAGE 08/22 completed Not Available Not Available Not Available albuterol sulfate HFA 90 mcg/actuati on aerosol inhaler INHALE 2 PUFFS BY MOUTH EVERY 4 HOURS NEEDED FOR SHORTNESS OF BREATH FOR WHEEZING active Not Available Not Available No t Available ipratropium bromide 42 mcg (0.06 %) nasal spray Harvey 1 spray 4 times a day by intranasa l route as needed. active Not Available Not Available No t Available fluticasone propionate 50 mcg/actuati on nasal spray,suspe nsion USE 2 SPRAY(S) IN EACH NOSTRIL ONCE DAILY 12/05 completed Not Available Not Available Not Available naproxen 500 mg tablet 02/16 completed Not Available Not Available Not Available amoxicillin 875 mg-potassiu m clavulanate 125 mg tablet 02/16 completed Not Available Not Available Not Available buspirone 15 mg tablet TAKE 1 TABLET BY MOUTH THREE TIMES DAILY NEEDED FOR ANXIETY active Not Available Not Available No t Available tadalafil 20 mg tablet TAKE 1 TABLET BY MOUTH ONCE DAILY NEEDED FOR ERECTILE DYSFUNCTI ON (TAKE APPROXIMA TELY 30 MINUTES BEFORE ACTIVITY, DO NOT USE MORE THAN 1 DOSE PER 24 HOUR) active Not Available Not Available No t Available cholecalcif kelsey (vitamin D3) 1,250 mcg (50,000 unit) capsule Take 1 capsule every week by oral route. 2023 active Not Available Not Available Not Avai lable PreviDent 5000 Booster Plus 1.1 % dental paste 02/16 completed Not Available Not Available Not Available Shingrix (PF) 50 mcg/0.5 mL intramuscul ar suspension, kit 02/16 completed Not Available Not Available Not Available Fluzone Quad 5222-1750 60 mcg (15 mcg x 4)/0.5 mL IM suspension 02/16 completed Not Available Not Available Not Available Eohilia 2 mg/10 mL oral suspension in packet Take 10 mL twice a day by oral route for 90 days. 2024 active Not Available Not Available Not Avai lable Vitals Date Recorded Body height Body mass index (BMI) Body weight Body temperature Heart rate Oxygen saturation Oxygen saturation in Arterial blood by Pulse oximetry Provider Name and Address Organization Details Last Updated DateTime 4 170.18 cm 27.1 kg/m2 09863.4 8 g 97.2 [degF] 81 /min 98 % 98 % Tiffany Cunha [place] [facility] 4 09:50:02 Date Recorded Body height Body mass index (BMI) Body weight Heart rate Oxygen saturation Oxygen saturation in Arterial blood by Pulse oximetry Body temperature Systolic blood pressure Diastolic blood pressure Provider Name and Address Organization Details Last Updated DateTime 4 170.18 cm 26.9 kg/m2 26644.8 9 g 76 /min 98 % 98 % 98.2 [degF] 124 mm[Hg] 88 mm[Hg] Blanche Radford MA [facility] 4 14:22:47 Date Recorded Heart rate Respiratory rate Provider N amie and Address Organization Details Last Updated DateTime 10/15/2024 76 /min 15 /min Filippo Martines MD [address] [place] [address], [facility], [place], [address], [facility] 10/15/2024 14:34:01 Date Recorded Body height Body mass index (BMI) Body weight Heart rate Oxygen saturation Oxygen saturation in Arterial blood by Pulse oximetry Systolic blood pressure Diastolic blood pressure Provider Name and Address Organization Details Last Updated DateTime 4 170.18 cm 27.3 kg/m2 93395.0 7 g 76 /min 99 % 99 % 122 mm[Hg] 86 mm[Hg] Areli Nicholson Kendrick [facility] 4 10:57:02 Date Recorded Body height Body mass index (BMI) Body weight Body temperature Heart rate Systolic blood pressure Diastolic blood pressure Provider Name and Address Organization Details Last Updated DateTime 5 170.18 cm 26.9 kg/m2 81865.8 9 g 97.6 [degF] 90 /min 128 mm[Hg] 80 mm[Hg] Linsey Brown Kendrick [facility] 5 10:56:45 Social History Question Answer Notes LastModified by Organization Details LastModified Time Tobacco Smoking Status Former Smoker Tiffany Cunha MA [facility], [facility] 08/22/2024 09:54:46 What Is Your Level Of Alcohol Consumption? Occasional Information not available 08/22/2024 What Is Your Level Of Caffeine Consumption? Moderate Information not available 08/22/2024 In The 14 Days Before Symptom Onset, Have You Had Close Contact With A Laboratory-conf sally ANNEID-19 While That Case Was Ill? No Information not available 08/22/2024 In The 14 Days Before Symptom Onset, Have You Had Close Contact With A Person Who Is Under Investigation For COVID-19 While That Person Was Ill? No Information not available 08/22/2024 Are You Currently Employed? No Disability Information not available 08/22/2024 What Type Of Diet Are You Following? REGULAR Information not available 08/22/2024 Do You Have An Electrostatic Air Filter? Yes Information not available 10/15/2024 Have You Been Exposed To Chemicals Or Toxins? Yes Information not available 10/15/2024 Have There Been Any Changes To Your Family Or Social Situation? No Information not available 08/22/2024 When Did You Quit Smoking? 16+yearssincelast cigarette Information not available 08/22/2024 Do You Have A Humidifier? No Information not available 10/15/2024 Do You Use Insect Repellent Routinely? No Information not available 08/22/2024 [facility] 08/22/2024 Do You Have Moisture Problems In Your Home? No Information not available 10/15/2024 What Was The Date Of Your Most Recent Tobacco Screening? 12/05/2024 Information not available 12/05/2024 Do You Have Any Pets? No Information not available 08/22/2024 What Is Your Relationship Status? Other Girlfriend Information not available 08/22/2024 Do You Use Your Seat Belt Or Car Seat Routinely? Yes Information not available 08/22/2024 Do You Have Smoke And Carbon Monoxide Detectors In Your Home? Yes Information not available 08/22/2024 At What Age Did You Start Smoking Tobacco? 12 Information not available 08/22/2024 Are You Passively Exposed To Smoke? No Information not available 08/22/2024 Are There Any Smokers In Your House? No Information not available 08/22/2024 How Much Tobacco Do You Smoke? No Was 1 Ppd Information not available 12/05/2024 Do You Feel Stressed (tense, Restless, Nervous, Or Anxious, Or Unable To Sleep At Night)? [id number] Information not available 08/22/2024 Do You Use Any Illicit Or Recreational Drugs? No Information not available 08/22/2024 Do You Use Sunscreen Routinely? No Information not available 08/22/2024 Have You Recently Traveled Abroad? No Information not available 08/22/2024 Do You Have Any Dietary Restrictions? No Information not available 08/22/2024 Do You Or Have You Ever Used Any Other Forms Of Tobacco Or Nicotine? No Information not available 12/05/2024 Sex: Unknown Functional Status Question Answer Note LastModified by Organization D etails LastModified Time What is your exercise level? None Information not available 08/22/2024 Mental Status None recorded. Family History Relationship Description Onset Age of this Age Resolved Age Notes LastModified by Organization Details LastModified Time Mother Malignant tumor of breast [email or web address] Not available 2023 09:52:36 Father Malignant tumor of pancreas [email or web address] Not available 2023 09:53:02 Sister Malignant tumor of breast [email or web address] Not available 2023 09:53:19 Maternal Grandfather Myocardial infarction Not available 10/15 14:45:41 Maternal Grandmother Spondylosis Not available 14:46:08 Brother Depressive disorder Not available 2023 14:48:31 Brother Suicide Not available 1 12/15/2023 14:48:38 Medical History No medical history recorded. Immunizations Vaccine Type Date Status Note Provider Nam e and Address Organization Details Recorded Time Pneumococcal conjugate PCV20, polysaccharide XZI254 conjugate, adjuvant, PF completed RICARDO [place], [place] [facility] 12/05/2024 10:49:08 Past Encounters Encounter ID Performer Location Encounter Start Date Encounter Closed Date Diagnosis/Indication Diagnosis SNOMED-CT Code Diagnosis ICD10 Code Diagnosis Note [id number] Marcin schaefer MD [facility] [address] [facility], [facility] [place] [address] 08/22/2024 09:20:02 08/22/2024 11:09:26 Screening - NAD 696403674 Z13.9 C-scope: States that he did get this [address] Patton, get the report Get yearly flu shotGet tdap if not doneGet shingrix vaccineGet pneumonia vaccine if not doneCan do COVID 19 vaccineCan do RSV vaccineWan ts to hold off on these 08/22/2024 , wants to see if his pharmacy has given this RTC in 3 months, do labs, ER if worse, he did verbalize his understand ing of the above Hyperlipidemia 26386706 E78.5 On atorvastat in 20mg dailyGet labs Low back pain 958241759 M54.50 On baclofen 10mg as needed 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 that he is on disability , and will need his paperwork, last done in 04/2024 by his prior PCP Dr Cy Mcdonald hageal reflux disease without esophagitis 365827927 K21.9 On pantoprazo le 40mg daily, take as needed, get EGD done Mixed anxi ety and depressive disorder 799154399 F41.8 On buspirrone 15mg tidDoes well on thisNot suicidal or homicidalD oes not want a psychiatry referral Primary er ectile dysfunction 032974854 N52.9 On tadalafil 20mgTake as needed Former hea vy tobacco smoker 5232198991 82953 Z87.891 Get [place] AAA Chronic cough 42278575 R 05.3 On albuterol as neededOn flonaseGet CT chest and get pulmonary apt Screening for cardiovascular system disease 454191228 Z13.6 Malignant tumor of prostate 564500118 C61 S/p prostectom ySees Dr Shukla PSA thru his office Vitamin D deficiency 347 19257 E55.9 Bilateral cataracts 9572 2003 H26.9 Will refer to eye MD Screening for osteoporosis 678026630 Z13.820 Wants to check for OP and wants a DEXA ordered 08/22/2024 [id number] Marcin schaefer MD [facility] [address] [facility] [address] [place] [address] 08/28/2024 13:49:16 08/28/2024 14:05:15 [id number] Filippo Martines MD [facility] Pulmonolo gy [place] [address] [place] [address] [address] [place] [address] 10/15/2024 14:02:24 11/18/2024 11:36:38 Solitary nodule of lung 432479853 R91.1 Dyspnea on exertion 6084 5006 R06.09 R05.9 T78.40XA D89.9 Posterior rhinorrhea 758 59583 R09.82 [id number] Barbara Reddy MD [facility] General Surgery [address] [place] [address] 1 10/28/2024 10:36:07 10/28/2024 11:27:26 Gastroesophageal reflux disease without esophagitis 007866907 K21.9 [id number] Tiffany Cunha MA [facility] Internal Med [facility] [[email or web address]] [address] [place], [place] [address], [place] [address] 12/05/2024 10:43:47 12/05/2024 11:57:27 Screening - NAD 598414837 Z13.9 C-scope: States that he did get this [address] Patton, get the report Get yearly flu shotGet tdap if not doneGet shingrix vaccineGet pneumonia vaccine if not doneCan do COVID 19 vaccineCan do RSV vaccineWan ts to hold off on these 08/22/2024 , wants to see if his pharmacy has given this RTC in 3 months, do labs, ER if worse, he did verbalize his understand ing of the above Hyperlipidemia 29135654 E78.5 On atorvastat in 40mg dailyGet labs Low back pain 067255067 M54.50 On baclofen 10mg as needed 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 that he is on 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 , and will need his paperwork, last done in 04/2024 by his prior PCP Dr Cy Mcdonald hageal reflux disease without esophagitis 672687857 K21.9 On pantoprazo le 40mg dailyEGD 12/02/2024 Dr Fulton on Eohilia as per Dr Reddy Mixed anxi ety and depressive disorder 928726078 F41.8 On buspirone 15mg tidDoes well on thisNot suicidal or homicidalD oes not want a psychiatry referral Primary er ectile dysfunction 185274513 N52.9 On tadalafil 20mgTake as needed Former hea vy tobacco smoker 6503789166 25406 Z87.891 [place] AAA 09/09/2024 : Neg Chronic cough 91383267 R 05.3 On albuterol as neededOn flonaseOn ipratropoi um CT chest 09/09/2024 Dr Martines 10/15/2024 Malignant tumor of prostate 317302564 C61 S/p prostectom ySees Dr Shukla PSA thru his officeIs to get PET CT 12/06/2024 Vitamin D deficiency 347 11035 E55.9 On OTC vit dRepeat the VIT D Bilateral cataracts 9572 2003 H26.9 Will refer to eye MD Screening for osteoporosis 806731536 Z13.820 Wants to check for OPDEXA;; Normal Screening for cardiovascular system disease 199225755 Z13.6 S/p ECHODr Nix SL 12/03/2024 Health Concerns Section Related Observation LastModified by Organization Detai ls LastModified Time None Recorded Concern Status LastModified by Organization Details LastModified Time None Recorded Advance Directives Directive None Recorded Payers Encounter Date Sequence Insurance Name Policy Number Policy Romero Covered Member ID Romero Member ID Guarantor Name 08/22/2024 1 [facility] [employer] Suzette Apponey [id number] OI Suzette Apponey 08/22/2024 2 [place] Suzette Levy Jr [id number] Suzette Apponey 08/28/2024 1 [facility] BENEF[facility] PLAN Suzette Apponey [id number] OI Suzette Apponey 08/28/2024 2 [place] Suzette Levy Jr [id number] Suzette Apponey 10/15/2024 1 [facility] BENEF[facility] PLAN Suzette Apponey [id number] OI Suzette Apponey 10/15/2024 2 [place] Suzette Levy Jr [id number] 5 Suzette Apponey 10/28/2024 1 [facility] BENEF[facility] PLAN Suzette Apponey [id number] OI Suzette Mildred 10/28/2024 2 [place] Suzette Levy Jr [id number] 5 Suzette Levy Notes Date Note Type Note Provider Name and Address Organization Details Recorded Time 08/22/2024 text/html OV 08/22/2024:He re to establish care Present Hx:HLDGERDEDChronic coughEx smokerHx of prostate cancer s/p surgery Here to discuss above, states that he does have to do paperwork as he is disabled, 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 and also used to smoke so now has a chronic cough, no recent workup for COPD but is on albuterol as neededHe denies any chest pain, SOB, palpitations, syncope or pre syncopeHe has just had imaging for his LS spine and states that he does need to do imaging as his [employer] company requires this done for [employer] Marcin Bhakta MD [address] [facility], [place] [address], [place], [address], [place] [facility] [place] [facility] [employer] 08/22/2024 16:10:49 10/15/2024 text/html Primary care/Ref erring provider: Marcin Bhakta MD CC: I have a spot on my chest CT. Patient is here to go over shortness of breath evaluation/management. Initial development of shortness of breath: 2018Duration of shortness of breath: 6 yearsCondition of shortness of breath: stableTiming of shortness of breath: night fallFrequency: up to 7 times a dayLimits activities: yesAggravating factors: walking, lifting, mowingAlleviating factors: rest Modified [employer] [place] (mMRC) Dyspnea Scale - Grade 1Grade 0 ? I only get breathless with strenuous exercise? .Grade 1 ? I get short of breath when hurrying on the level or walking up a slight hill? .Grade 2 ? I walk slower than people of the same age on the level because of breathlessness or have to stop for breath when walking at my own pace on the level? .Grade 3 ? I stop for breath after walking about 100 yards or after a few minutes on the level? .Grade 4 ? I am too breathless to leave the house? or ? I am breathless when dressing? . Treatment history: Albuterol HFA as needed since 2018 Other symptoms:Drooling: noDysarthria: noNeck pain: noOdynophagia: noDysphagia: noWeak mastication: noFacial weakness: noNasal speech: noProtruding tongue: noProductive cough: clearWheezing: yesChest tightness: yesOrthopnea: noFrequent throat clearing or swallowing: yesPalpitations: noHeartburn: yesEdema: no Environmental exposures:Nicotine smoke: 1 ppd 5290-9481 = 12 pack yearsPaint: noDye: noDust mites: yesMold: noDamp basement: noWood burning stove: noAnimal dander: catCockroaches: noPollen: yesArsenic: noAsbestos: noBeryllium: noCadmium: noChromium: noCoal smoke: noDiesel fumes: noNickel: noSilica: noSoot: no EPWORTH SLEEPINESS SCALE (ESS) CHANCE OF DOZING SCORE0 = would never doze1 = slight chance of dozing2 = moderate chance of dozing3 = high chance of dozing SITUATION AND CHANCE OF DOZINGSitting and reading - 0Watching television - 0Sitting inactive in a public place (e.g. a theater or meeting) - 0As a passenger in a car for an hour without a break - 0Lying down to rest in the afternoon when circumstances permit - 0Sitting and talking to someone - 0Sitting quietly after lunch without alcohol - 0In a car, while stopped for a few minutes in the traffic - 0TOTAL SCORE 0Subjectively, patient has no chance of dozing. Filippo Martines MD [address] [place] [address], [facility], [place], [address], [facility] - S [facility] 10/15/2024 14:54:34 10/28/2024 text/html PT WAS SEEN IN T HE OFFICE TODAY FOR GERD . PT DENIES ABD PAIN /N/V. PT ADMITS TO PYROSIS. HE DENIES N/V. PT HAS COUGHING . HE SAW DR MARTINES . HE WAS RXED FLUTICASONE AND ALBUTEROL . . PT DENIES WT LOSS BLEEDING . Barbara Reddy MD [address] [place] [address], [place], [address], [place] [facility] 10/28/2024 11:29:13
--- OUTSIDE RECORDS SUMMARY | 2024-12-12 05:08 | XMS_ITS | CONTINUITY OF CARE DOCUMENT ---
Author Name bonilla crystal Address Unknown Organization [facility] Address [address] [place] [address] Phone [phone] Care Team Providers Care Fiction And Nonfiction Writer Prose Name Role Phone Maye Mccormack MD Unavailable [phone] QUINN CISNEROS MD Unavailable [phone] QUINN CISNEROS MD Unavailable [phone] PROBLEMS Condition Status Date Provider Notes Hyperlipidemia active Rene Hsu Prostate cancer active Rene Hsu FAMILY HISTORY OF HEART DISEASE active Blair Mccormack MD Elevated blood pressure active Brandie Thalia hughes JUDICIAL REPORTER Shortness of breath active Maye Mccormack MD ENCOUNTERS Date Type Provider Location Encounter Diag nosis - In-person encounter Office Visit Maye Mccormack MD [facility] Elevated blood pressure - In-person encounter Office Visit Maye Mccormack MD [facility] FAMILY HISTORY OF HEART DISEASEShortness of breath VITAL SIGNS Date Observation Value Provider Body Mass Index (Ratio) 27.72 kg/m2 Blair Mccormack MD blood pressure, diastolic 90 mm[Hg] Vi juan jose [facility] blood pressure, systolic 146 mm[Hg] Vip in [facility] saturation, oximetry 97 % Helder [facility] respiratory rate E&M 12 /min Helder [facility] pulse rate 72 /min Helder Guevaraandi weight E&M 177 [lb_av] Helder Guevaraandi blood pressure, cuff size regular Lorie Goodengama height E&M 67 [in_i] Helder Guevaraandi Body Mass Index (Ratio) 26.94 kg/m2 Blair Mccormack MD blood pressure, diastolic 87 mm[Hg] Vickie Friedman blood pressure, systolic 144 mm[Hg] Vickiepee mariannejavier Friedman oxygen saturation, oximetry 96 % Graciela Friedman pulse rate 80 /min Graciela Friedman respiratory rate E&M 12 /min Graciela Friedman weight E&M 172 [lb_av] Gracielajavier Friedman height E&M 67 [in_i] Graciela Friedman blood pressure, cuff size regular Vickie Friedman ALLERGIES No Known Drug Allergies HISTORY OF MEDICATION USE Medication Status Instructions Dates Provider Indications Com ments atorvastatin 40 mg tablet active Helder Goodengama atorvastatin 20 mg tablet completed - 4 Helder Goodengama tadalafil 20 mg tablet active TAKE 1 TABLET BY MOUTH ONCE DAILY NEEDED FOR ERECTILE DYSFUNCTION (TAKE APPROXIMATELY 30 MINUTES BEFORE ACTIVITY, DO NOT USE MORE THAN 1 DOSE PER 24 HOUR) Graciela Friedman buspirone 15 mg tablet active Graciela Friedman fluticasone propionate 50 mcg/actuation spray,suspension active Graciela Friedman albuterol sulfate 90 mcg/actuation HFA aerosol inhaler active Graciela Friedman pantoprazole 40 mg tablet,delayed release (DR/EC) active TAKE 1 TABLET BY MOUTH EVERY DAY Graciela Friedman baclofen 10 mg tablet active 1 tablet by mouth once a day Graciela Friedman SOCIAL HISTORY Date Observation Value Provider personal history of marijuana use no Brandie Ventimiglia [facility] drug use no Brandie Ventimig pavan [facility] alcohol use no Brandie Ventimig pavan [facility] smoking status Never smoker Brandie arambula [facility] INSURANCE PROVIDERS Payer name Policy type / Coverage type [place] [employer] party ID [id number] [employer] Other [id number] MEDICARE SECONDARY [place] Medicare [id number] ADVANCE DIRECTIVES Name Date DISCUSSED - NO DECISION MADE TREATMENT PLAN Date Name Performer Cardiology:This visi t has been a part of the consistent, comprehensive, and ongoing management of the chronic medical condition(s) listed above for the patient. The following medications were removed from the medication list: Atorvastatin 20 Mg Tablet (Atorvastatin) His updated medication list for this problem includes: Atorvastatin 40 Mg Tablet (Atorvastatin) Maye Mccormack MD Cardiology:follows with chalo Brandie Bess [facility] Cardiology:BP above goal will have him monitor at home W ill return in one month I f elevated will begin ARB Brandie Bess [facility] Cardiology: T he following medications were removed from the medication list: Atorvastatin 20 Mg Tablet (Atorvastatin) His updated medication list for this problem includes: Atorvastatin 40 Mg Tablet (Atorvastatin) Brandie Bess [facility] Cardiology:Has been chronic post covid H ad echo that showed normal EF with no valvular abnormalities W ill get coronary calcium score. Brandie Bess [facility] Cardiology Maye Mccormack MD Cardiology Maye Mccormack MD Cardiology Maye Mccormack MD Cardiology Maye Mccormack MD Date Name CT, Coronary Calcium Score Complete Echo HISTORY OF PROCEDURES Procedure Date Procedure Name Provider Procedure Notes S tatus Complex e/m visit add on Maye Mccormack MD completed
--- OUTSIDE RECORDS SUMMARY | 2024-12-12 05:08 | XMS_ITS | Clinical Summary ---
Author Organization [facility] Address [address] [place] [address] Care Team Providers Care Dining Room Host/Hostess Name Role Phone Will Antonio MD Primary Care Provider [phone] Source Comments [facility],non-owned Affiliates and Associated Physician Practices is amultiple site organization consisting of ambulatory clinics and hospital sitesin [place], [place], [place] and [place]. This disclosure is being madepursuant to the Care Everywhere program and may not contain all information available regarding this patient. Last updated 18.[facility] Allergies No known active allergies Medications * Be aware that medications may not be up to date on this document. Alwaysverify current medications with the patient. Medication Sig Dispensed Refills Start Date End Date Status Atorvastatin Calcium (LIPITOR PO) Active Omeprazole (PRILOSEC PO) Active albuterol HFA (PROVENTIL;VENTOLIN;P ROAIR) 108 (90 BASE) MCG/ACT inhalerIndications:Ac jf bronchitis, unspecified organism Inhale 2 puffs by mouth every 4 hours as needed for Wheezing 1 Inhaler 09/27/2018 Active Immunizations Name Administration Dates Next Due INFLUENZA VACCINE, QUADR. (F LUZONE; FLULAVAL; FLUARIX; AFLURIA QUADRIVALENT; 6MO+), 0.5 ML (IIV4) 08/05/2019 Social History Tobacco Use Types Packs/Day Years Used Date Smoking Tobacco: Never Smokeless Tobacco: Never Sex and Gender Information Value Date Recorded Sex Assigned at Not on file Gender Identity Not on file Sexual Orientation Not on file Last Filed Vital Signs Vital Sign Reading Time Taken Comments Blood Pressure 122/76 09/27/2018 9:08 AM DECORATOR MANNEQUIN Pulse 84 09/27/2018 9:08 AM DECORATOR MANNEQUIN Temperature 37 ??C (98.6 ??F) 09/27/2018 9:08 AM DECORATOR MANNEQUIN Respiratory Rate 16 09/27/2018 9:08 AM DECORATOR MANNEQUIN Oxygen Saturation 98% 09/27/2018 9:08 AM DECORATOR MANNEQUIN Inhaled Oxygen Concentration - - Weight 79.8 kg (176 lb) 09/27/2018 9:08 AM DECORATOR MANNEQUIN Height 170.2 cm (5' 7 ) 09/27/2018 9:08 AM DECORATOR MANNEQUIN Body Mass Index 27.57 09/27/2018 9:08 AM DECORATOR MANNEQUIN Plan of Treatment Health Maintenance Due Date Last Done Comments COLOGUARD (AGES 45-75) - COL ON CA SCREENING 1959 COLON MONITORING 1959 COLONOSCOPY - COLON CA SCREENING 1959 CT COLONOGRAPHY - COLON CA SCREENING 1959 Colorectal Cancer Screening 1959 FIT - COLON CA SCREENING 1959 FLEX SIG - COLON CA SCREENING 1959 HIV SCREENING 1974 HEPATITIS C SCREENING 03/15/1977 DTAP/TDAP/TD VACCINES (1 - Tdap) 1978 PNEUMOCOCCAL VACCINE 50+ (1 of 1 - PCV) 2009 ZOSTER VACCINE (1 of 2) 2009 SCREENING FOR DIABETES 12/05/2017 COVID-19 VACCINE ( - 2023-2 5 season) 2024 INFLUENZA VACCINE (#1) 2024 08/05/2019 DEPRESSION SCREENING 11/20/2024 Respiratory Syncytial Virus (RSV) Vaccine Pt: or over 60 yrs (1 - 1-dose 75+ series) 2034 HEPATITIS B VACCINE Aged Out No longe r eligible based on patient's age to complete this topic HIB VACCINE Aged Out No longer eligi ble based on patient's age to complete this topic HPV VACCINE Aged Out No longer eligi ble based on patient's age to complete this topic MENINGOCOCCAL (Group B) VACCINE Aged Out No longer eligible based on patient's age to complete this topic MENINGOCOCCAL VACCINE Aged Out No ángel mehul eligible based on patient's age to complete this topic Care Teams Dining Room Host/Hostess Relationship Specialty Start Date End Date Will Antonio MD [address] [place] [address] PCP - General Internal Medicine 12/05/17
--- OUTSIDE RECORDS SUMMARY | 2024-12-12 05:08 | XMS_ITS | Patient Health Summary ---
Author Organization [facility] Address [address] [place] [address] Care Team Providers Care Metallurgical Engineer Name Role Phone Will Antonio MD Primary Care Provider [phone] Note from [facility],non-owned Affiliates and Associated Physician Practices is amultiple site organization consisting of ambulatory clinics and hospital sitesin [place], [place], [place] and [place]. This disclosure is being madepursuant to the Care Everywhere program and may not contain all information available regarding this patient. Last updated 18.[facility] Allergies No known active allergies Medications * Be aware that medications may not be up to date on this document. Alwaysverify current medications with the patient. * Atorvastatin Calcium (LIPITOR PO) * Omeprazole (PRILOSEC PO) * albuterol HFA (PROVENTIL;VENTOLIN;PROAIR) 108 (90 BASE) MCG/ACT inhaler (Started 09/27/2018) Inhale 2 puffs by mouth every 4 hours as needed for Wheezing Immunizations * INFLUENZA VACCINE, QUADR. (FLUZONE; FLULAVAL; FLUARIX; AFLURIA QUADRIVALENT; 6MO+), 0.5 ML (IIV4)(Given 08/05/2019) Social History Tobacco Use Types Packs/Day Years Used Date Smoking Tobacco: Never Smokeless Tobacco: Never Sex and Gender Information Value Date Recorded Sex Assigned at Not on file Gender Identity Not on file Sexual Orientation Not on file Last Filed Vital Signs Vital Sign Reading Time Taken Comments Blood Pressure 122/76 09/27/2018 9:08 AM HISTOPATH TECH Pulse 84 09/27/2018 9:08 AM HISTOPATH TECH Temperature 37 ??C (98.6 ??F) 09/27/2018 9:08 AM HISTOPATH TECH Respiratory Rate 16 09/27/2018 9:08 AM HISTOPATH TECH Oxygen Saturation 98% 09/27/2018 9:08 AM HISTOPATH TECH Inhaled Oxygen Concentration - - Weight 79.8 kg (176 lb) 09/27/2018 9:08 AM HISTOPATH TECH Height 170.2 cm (5' 7 ) 09/27/2018 9:08 AM HISTOPATH TECH Body Mass Index 27.57 09/27/2018 9:08 AM HISTOPATH TECH Procedures * STREP A SCREEN - POINT OF CARE (AMB) STL(Performed 12/05/2017) Performed for Acute streptococcal pharyngitis Results * (ABNORMAL) STREP A SCREEN - POINT OF CARE (AMB) STL (12/05/2017) Strep A Rapid POCT Positive(A) Negative Strep A Internal Control Present Lot # [id number] Expiration Date 06/30/2019 Throat ENTIRE THROAT (SURFACE REGION OF NECK) / Unknown 12/05/2017 Radha Franco LEGISLATIVE ANALYST-[facility] - POINT OF CARE ORDERABLES Care Teams Metallurgical Engineer Relationship Specialty Start Date End Date Will Antonio MD [address] [facility] [address] [place] [phone] PCP - General Internal Medicine 12/05/17
--- OUTSIDE RECORDS SUMMARY | 2024-12-12 05:08 | XMS_ITS | Referral Summary ---
Author Organization [facility] Address [address] [place] [address] Care Team Providers Care Creel Operator Name Role Phone Will Antonio MD Primary Care Provider [phone] Source Comments [facility],non-owned Affiliates and Associated Physician Practices is amultiple site organization consisting of ambulatory clinics and hospital sitesin [place], [place], [place] and [place]. This disclosure is being madepursuant to the Care Everywhere program and may not contain all information available regarding this patient. Last updated 18.[facility] Allergies No known active allergies Medications * [...] Comments Blood Pressure 122/76 09/27/2018 9:08 AM MANAGER OF SUPPLY CHAIN Pulse 84 09/27/2018 9:08 AM MANAGER OF SUPPLY CHAIN Temperature 37 ??C (98.6 ??F) 09/27/2018 9:08 AM MANAGER OF SUPPLY CHAIN Respiratory Rate 16 09/27/2018 9:08 AM MANAGER OF SUPPLY CHAIN Oxygen Saturation 98% 09/27/2018 9:08 AM MANAGER OF SUPPLY CHAIN Inhaled Oxygen Concentration - - Weight 79.8 kg (176 lb) 09/27/2018 9:08 AM MANAGER OF SUPPLY CHAIN Height 170.2 cm (5' 7 ) 09/27/2018 9:08 AM MANAGER OF SUPPLY CHAIN Body Mass Index 27.57 09/27/2018 9:08 AM MANAGER OF SUPPLY CHAIN Plan of Treatment Not on file Care Teams Creel Operator Relationship Specialty Start Date End Date Will Antonio MD [address] [place] [address] PCP - General Internal Medicine 12/05/17
--- OUTSIDE RECORDS SUMMARY | 2024-12-12 05:08 | XMS_ITS | Clinical Summary ---
Author Organization [facility] Address [facility] [facility] [place] [address] [place] [address] Care Team Providers Care Shop Mechanic Name Role Phone Unavailable Primary Care Provider Unavailabl e Encounters Date Type Department Care Team Description 12/02/2024 7:24 AM SPRING ENCASER - 12/02/2024 11:59 PM SPRING ENCASER Hospital Encounter [facility] [place] [address] Barbara Reddy MD Discharge Disposition: Home or Self Care (Routine Discharge) from Last 3 Months Social History Tobacco Use Types Packs/Day Years Used Date Smoking Tobacco: Never Assessed Sex and Gender Information Value Date Recorded Sex Assigned at Not on file Legal Sex Male 7:24 AM SPRING ENCASER Gender Identity Not on file Sexual Orientation Not on file Plan of Treatment Health Maintenance Due Date Last Done Comments Colorectal Cancer Screening Colonoscopy (10 Years) 1959 Hepatitis C 1977 DTaP, Tdap and Td Vaccines ( 1 - Tdap) 1978 Zoster Vaccines (1 of 2) 2009 Pneumococcal Vaccine: 65+ Ye ars (1 of 1 - PCV) 2024 COVID-19 Vaccine ( - 2023-2 5 season) 2024 Influenza Adult (#1) 2024 RSV Immunization or 60+ Years (1 - 1-dose 75+ series) 2034 Meningococcal Vaccine Aged Out No ángel mehul eligible based on patient's age to complete this topic Pneumococcal Vaccine: Pediat rics (0 to 5 Years) and At-Risk Patients (6 to 64 Years) Aged Out No longer eligible b ased on patient's age to complete this topic RSV Immunizations Under 20 Months Aged Out No longer eligible based on patient's age to complete this topic Procedures Procedure Name Priority Date/Time Associated Diagnosis Comments PATHOLOGY Routine 12/02/2024 12:00 AM SPRING ENCASER from Last 3 Months Results * Pathology (12/02/2024 12:00 AM SPRING ENCASER) PATHOLOGY [facility] ? Department of Laboratory Medicine ?[address] ?[place] [address] ? , extension [phone] ? Pathology Report ? Surgical Pathology Report Name: ANTHONYSUZETTE BENDER ? Specimen #: [id number] Age: 5 1960 (Age: 64) ? Location: [facility] Sex: M ?Procedure Date: 12/02/2024 Hospital #: [id number] ?Date Received: 12/03/2024 Date Reported: 12/04/2024 Provider: BARBARA REDDY MD Source: Esophageal, biopsies Clinical History: GERD. Postoperative Diagnosis: Dysphagia and Schatzki's ring. ??Rule out eosinophilic esophagitis. FINAL DIAGNOSIS: Esophagus, biopsy: ? 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 ? -Intraepithelial eosinophils number greater than 100 per high-power field. Gross Description: Received in formalin, labeled with a patient label and as esophageal biopsy are 4 pieces of delicate white-fu tissue ranging from 0.1 to 0.2 cm. ??The specimen is entirely submitted in cassette 1. Gross examination (when applicable), interpretation, and sign out were performed at [facility], [address] [place] [address]. ?? Electronically Signed Out ? NICHOLE RICHEY MD [facility] 12/02/2024 12/03/2024 11: 39 AM SPRING ENCASER Comment:Esophageal, biopsies us Barbara Rdedy MD PATHOLOGY/CYTOLOGY ORDERA ARSEN Final Result [facility] [address] [place] [address], [id number] from Last 3 Months
--- OUTSIDE RECORDS SUMMARY | 2024-12-12 05:08 | XMS_ITS | Clinical Summary ---
Author Organization [facility] Address [address] [place] [address] Care Team Providers Care Fruit Or Nut Grower Name Role Phone Unavailable Primary Care Provider Unavailabl e Immunizations Immunization Administration Dates Next Due Covid-19, Mrna, Lnp-s, Pf, 30 Mcg/0.3 Ml Dose (P fizer) 12/09/2021 Social History Tobacco Use Types Packs/Day Years Used Date Smoking Tobacco: Never Assessed Sex and Gender Information Value Date Recorded Sex Assigned at Not on file Legal Sex Male 3:22 PM SCRUB TECHNICIAN Gender Identity Not on file Sexual Orientation Not on file Plan of Treatment Health Maintenance Due Date Last Done Comments Hepatitis C Virus (HCV) Screening 1960 TdaP Immunization 1960 Colonoscopy 2004 Colorectal Cancer Screening 2004 Cologuard 2009 Immunochemical Fecal Occult Blood 2009 Pneumococcal Immunization (50+ years) (1 of 1 - PCV) 2009 PSA Discussion 2014 Influenza Immunization (#1) 2024 10/0 05/2021, 07/28/2020, 08/05/2019, Additional history exists SARS-COV-2 Immunization ( season) 2024 12/09/2021, 05/03/2021, 04/12/2021 Respiratory Syncytial Virus (RSV) Immunization (Adult) (1 - 1-dose 75+ series) 2034 Zoster Immunization Completed 04/27/2018, 8 Hepatitis B Immunization Aged Out No longer eligible based on patient's age to complete this topic Meningococcal Immunization (ACWY) Aged Out No longer eligible based on patient's age to complete this topic Rotavirus Immunization Aged Out No lo nger eligible based on patient's age to complete this topic
== END 2024-12-06 07:48 | disposition home or self-care (01) ==
LOC: ANHIMG 07:48
PROVIDERS: PCP Nurse Practitioner; Visit Provider Urology
DX: C61 Malignant neoplasm of prostate (principal); R91.1 Solitary pulmonary nodule; R19.00 Intra-abdominal and pelvic swelling, mass and lump, unspecified site
CPT/HCPCS: 78815; A9596

== ENCOUNTER 2025-10-03 07:07 | Outpatient (CLI) | payer OTHER, MEDICARE, SELFPAY ==
--- NOTE | ~2025-10-03 | PE_ITS ---
EXAMINATION: PET_PETPSMAST_PT DATE: 10/03/2025 10:31 INDICATION: Prostate cancer TECHNIQUE: 5.480 mCi of Illucix Ga-68([id number]) was administered i.v. Low dose computed tomography (CT) images were acquired from the base of the brain to the base of the brain to the proximal thighs for attenuation correction and anatomic localization. Positron emission tomography (PET) images were acquired in the same distribution beginning 75 minutes after injection. Images including fused PET/CT images were reconstructed in axial, coronal, and sagittal planes. Automated exposure control technique was employed. The dose-length product was 959.40mGy-cm. COMPARISON: 12/06/2024 FINDINGS: Head/neck: Typical pattern of symmetric physiologic increased activity in the lacrimal, parotid and submandibular glands as well as along the mucosa of the nasal and oral cavities, pharynx and hypopharynx. No pathologically enlarged cervical lymphadenopathy or suspicious foci of increased uptake in the visualized head or neck. Chest: Normal anatomic variant azygos lobe and fissure at the medial right upper lobe. Unchanged pulmonary nodules without evident activity measuring 7 mm at the superior segment of the right lower lobe and 304 mm along the pleura at the posterior basilar right lower lobe. No pleural effusion. Heart size is normal. Atherosclerotic coronary artery calcifications and small amount of aortic valve calcific lesion. No pericardial effusion. Thoracic aorta is normal in caliber. No pathologically enlarged or PSMA avid thoracic lymphadenopathy. Abdomen/pelvis/proximal thighs: Physiologic renal accumulation and excretion of activity in the kidneys, bladder and along portions of ureters. Photopenic defect associated with a 3.5 cm exophytic cyst at the lower pole of the right kidney. Postoperative change of prior prostatectomy. Prominent activity associated with an exophytic lesion at the left anterior bladder potentially representing a bladder diverticulum. There is however also increased activity with maximal SUV of 10.4 associated with an enlarging plane of soft tissue density along the cephalad margin of the left pubic ramus which has increased from 4 x 1.0 cm currently measuring 3.4 x 2.0 cm on the axial plane. There is been increase in degree of uptake with prior max imal SUV of 4.5 and current maximal SUV of 8.1 associated with additional small triangular plane of soft tissue density 1.8 x 1.7 cm on the axial images but isn't posterior to the left side of the bladder and deep to the obturator muscle. Both regions are concerning for local metastatic disease. Normal degree and slightly heterogenous pattern of increased uptake throughout the liver and spleen without radiologic correlate or dominant PSMA avid lesion. The gallbladder, pancreas and bilateral adrenal glands are normal. Moderate uptake scattered throughout the bowels with typical duodenal and proximal jejunal predominance and without radiologic correlate, also likely physiologic. Normal appendix. No other abnormal foci of increased uptake or pathologically enlarged lymphadenopathy in the abdomen, pelvis or proximal thighs. Musculoskeletal: No suspicious lytic, blastic or abnormally PSMA avid bone lesions. IMPRESSION: 1. Increasing size of PSMA avid planes of soft tissue density posterior to the left side of the bladder and along the cephalad margin of the left pubic ramus consistent with progression of local metastatic disease. 2. Prominent outpouching of PSMA activity from the left side of the bladder which could represent additional static disease or potentially a bladder diverticulum. When 3. No other more remote metastatic disease in the more cephalad pelvis, abdomen chest or neck. Reviewed, dictated and finalized at location A. H MEAT GRADER IMPRESSION: 1. Increasing size of PSMA avid planes of soft tissue density posterior to the left side of the bladder and along the cephalad margin of the left pubic ramus consistent with progression of local metastatic disease. 2. Prominent outpouching of PSMA activity from the left side of the bladder whi ch could represent additional static disease or potentially a bladder diverticu lum. When 3. No other more remote metastatic disease in the more cephalad pelvis, abdomen chest or neck.
--- OUTSIDE RECORDS SUMMARY | 2025-10-03 07:12 | XMS_ITS | Clinical Summary ---
Author Organization [facility] Address [address] [place] [address] Care Team Providers Care Herpetologist Name Role Phone Unavailable Primary Care Provider Unavailabl e Immunizations Immunization Administration Dates Next Due Covid-19, Mrna, Lnp-s, Pf, 30 Mcg/0.3 Ml Dose (P fizer) 12/09/2021 Social History Tobacco Use Types Packs/Day Years Used Date Smoking Tobacco: Never Assessed Sex and Gender Information Value Date Recorded Sex Assigned at Not on file Legal Sex Male 3:22 PM ETCHER PHOTOENGRAVING Gender Identity Not on file Sexual Orientation Not on file Plan of Treatment Health Maintenance Due Date Last Done Comments Hepatitis C Virus (HCV) Screening 1960 TdaP Immunization 1959 Cologuard 2004 Colonoscopy 2004 Colorectal Cancer Screening 2004 Immunochemical Fecal Occult Blood 2004 Pneumococcal Immunization (50+ years) (1 of 1 - PCV) 2009 Influenza Immunization (#1) 2025 10/0 05/2021, 07/28/2020, 08/05/2019, Additional history exists SARS-COV-2 Immunization (2024- season) 2025 12/09/2021, 05/03/2021, 04/12/2021 Respiratory Syncytial Virus (RSV) Immunization (Adult) (1 - 1-dose 75+ series) 2034 Zoster Immunization Completed 04/27/2018, 8 Hepatitis B Immunization Aged Out No longer eligible based on patient's age to complete this topic Human Papillomavirus (HPV) Immunization Aged Out No longer eligible based on patient's age to complete this topic Meningococcal Immunization (ACWY) Aged Out No longer eligible based on patient's age to complete this topic Rotavirus Immunization Aged Out No lo nger eligible based on patient's age to complete this topic
--- OUTSIDE RECORDS SUMMARY | 2025-10-03 07:12 | XMS_ITS | Clinical Summary ---
Author Organization [facility] Address [address] [place] [address] Care Team Providers Care Gas Load Dispatcher Name Role Phone Will Antonio MD Primary Care Provider [phone] Source Comments [facility] [facility],non-owned Affiliates and Associated Physician Practices is amultiple site organization consisting of ambulatory clinics and hospital sitesin [place], [place], [place] and [place]. This disclosure is being madepursuant to the Care Everywhere program and may not contain all information available regarding this patient. Last updated 18.[facility] [employer] [facility] Allergies No known active allergies Medications * Be aware that medications may not be up to date on this document. Alwaysverify current medications with the patient. Atorvastatin Calcium (LIPITOR PO) Active Omeprazole (PRILOSEC PO) Active albuterol HFA (PROVENTIL;ISA CLARITA;PROAIR) 108 (90 BASE) MCG/ACT inhalerIndicatio ns:Acute bronchitis, unspecified organism Inhale 2 puffs by mouth every 4 hours as needed for Wheezing 1 Inhaler 8 Active Immunizations Immunization Administration Dates Next Due INFLUENZA VACCINE, QUADR. (F LUZONE; FLULAVAL; FLUARIX; AFLURIA QUADRIVALENT; 6MO+), 0.5 ML (IIV4) 08/05/2019 Social History Tobacco Use Types Packs/Day Years Used Date Smoking Tobacco: Never Smokeless Tobacco: Never Sex and Gender Information Value Date Recorded Sex Assigned at Not on file Legal Sex Male 10:34 AM WASTE WATER TREATMENT PLANT OPERATOR Gender Identity Not on file Sexual Orientation Not on file Last Filed Vital Signs Vital Sign Reading Time Taken Comments Blood Pressure 122/76 09/27/2018 9:08 AM WASTE WATER TREATMENT PLANT OPERATOR Pulse 84 09/27/2018 9:08 AM WASTE WATER TREATMENT PLANT OPERATOR Temperature 37 C (98.6 F) 09/27/2018 9:08 AM WASTE WATER TREATMENT PLANT OPERATOR Respiratory Rate 16 09/27/2018 9:08 AM WASTE WATER TREATMENT PLANT OPERATOR Oxygen Saturation 98% 09/27/2018 9:08 AM WASTE WATER TREATMENT PLANT OPERATOR Inhaled Oxygen Concentration - - Weight 79.8 kg (176 lb) 09/27/2018 9:08 AM WASTE WATER TREATMENT PLANT OPERATOR Height 170.2 cm (5' 7) 09/27/2018 9:08 AM WASTE WATER TREATMENT PLANT OPERATOR Body Mass Index 27.57 09/27/2018 9:08 AM WASTE WATER TREATMENT PLANT OPERATOR Plan of Treatment Health Maintenance Due Date Last Done Comments COLOGUARD (AGES 45-75) - COL ON CA SCREENING 1959 COLON MONITORING 1959 COLONOSCOPY - COLON CA SCREENING 1959 CT COLONOGRAPHY - COLON CA SCREENING 1959 Colorectal Cancer Screening 1959 FIT - COLON CA SCREENING 1959 FLEX SIG - COLON CA SCREENING 1959 HEPATITIS C SCREENING 03/15/1977 DTAP/TDAP/TD VACCINES (1 - Tdap) 1978 PNEUMOCOCCAL VACCINE 50+ (1 of 1 - PCV) 2009 ZOSTER VACCINE (1 of 2) 2009 SCREENING FOR DIABETES 12/05/2017 DEPRESSION SCREENING 11/20/2024 COVID-19 VACCINE ( - 2024-2 6 season) 2025 INFLUENZA VACCINE (#1) 2025 08/05/2019 Respiratory Syncytial Virus (RSV) Vaccine Pt: or [...] to complete this topic MENINGOCOCCAL (Group B) VACC INE SHARED DECISION-MAKING Aged Out No longer eligibl e based on patient's age to complete this topic MENINGOCOCCAL GROUPS A/C/Y/W VACCINE Aged Out No longer eligible b ased on patient's age to complete this topic Insurance [employer] Care Teams Gas Load Dispatcher Relationship Specialty Start Date End Date Will Antonio MD [address] [facility] [[email or web address] [address] [place] [address] PCP - General Internal Medicine 12/05/17
--- OUTSIDE RECORDS SUMMARY | 2025-10-03 07:12 | XMS_ITS | Data Portability ---
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 Assessment Encounter Date Assessment Date Assessment LastModified by Organization Details LastModified Time 12/05/2024 12/05/2024 11/07/2024: PSA 2.53 VIT D 29.7 Alb 4.9, TP WNL Chol 213, TG 166, LDL 137 Not available 12/05/2024 11:49:21 12/19/2024 12/19/2024 Assessment: Rhinitis with postnasal drip Multiple environmental allergies IgE 1532 IU/mL Eosinophils 460/uL Hypogammaglobuline eugenia (IgG3) Nicotine smoke: 1 ppd 1828-8741 = 12 pack years Mild COPD 7 mm RLL pulmonary nodule Plan: The following were reviewed and explained to the patient: Chest CT 09/09/24 7 mm RLL nodule Lab data 10/15/24 multiple environmental allergies, high IgE, high eosinophils, low IgG3 PFT 12/18/24 FEV1 2.39 L (87%), BD 200 mL = 9%, TLC 6.17 L (110%), RV 2.31 L (106%), DLCO 95%, DLCO/VA 93% Patient may need gammaglobulin infusions during times of infection. Continue Atrovent nasal spray 0.06% 1 spray to [...] PET/CT, or tissue sampling Repeat chest CT one week before return. Advised to continue not to smoke. Continue [...] records to PCP for further management. Follow-up: 9 months, August 2025 Not available 12/19/2024 12:12:42 04/08/2025 04/08/2025 11/07/2024: PSA 2.53 VIT D 29.7 Alb 4.9, TP WNL Chol 213, TG 166, LDL 137 04/01/2025: VIT D 27.9 Gluc 106, Alb 4.5, TP WNL TG 176 Not available 04/08/2025 11:22:55 09/18/2025 09/18/2025 Assessment: Hypertension Rhinitis with postnasal drip Multiple environmental allergies IgE 1532 IU/mL Eosinophils 460/uL Hypogammaglobuline eugenia (IgG3) Nicotine smoke: 1 ppd 2456-6723 = 12 pack years Mild COPD RLL calcified pulmonary nodule Plan: The following were reviewed and explained to the patient: Chest CT 09/09/24 7 mm RLL nodule Chest CT 08/22/25 8.6 mm RLL calcified nodule, up to 1 mm BLL/KWABENA calcified nodules Lab data 10/15/24 multiple environmental allergies, high IgE, high eosinophils, low IgG3 PFT 12/18/24 FEV1 2.39 L (87%), BD 200 mL = 9%, TLC 6.17 L (110%), RV 2.31 L (106%), DLCO 95%, DLCO/VA 93% Patient may need gammaglobulin infusions during times of infection. Continue Atrovent nasal spray 0.06% 1 spray to [...] PET/CT, or tissue sampling Repeat chest CT and PFT one week before return. Advised to continue not to smoke. Continue [...] to PCP for further management. Follow-up: 1 year, August 2026 Not available 09/18/2025 11:52:02 Plan of Treatment Reminders Order Date Submit Date Provider Last Modified By Organization Details Last Modified Time Details Appointments Medicare Wellness 15 2024 09:00A Wisam issa MD Not available Not available Not available Follow Up 30 2025 10:00A Wisam Martines MD Not available Not available Not available Lab glycohemo globin, total, blood [address] (Lab), [address] [place], [address], 04/08/2025 10:52:17 microalbu min, urine [address] (Lab), [address] [place], [address], 04/16/2025 15:08:41 vitamin D, 25-hydrox y, total, serum [address] [place] [address] (Lab), [address] [place] [address], [address], 04/08/2025 10:52:17 lipid panel, serum [address] [place] [address] (Lab), [address] [place] [address], [address], 04/08/2025 10:52:16 CMP, serum or plasma [address] [place] [address] (Lab), [address] [place] [address], [address], 04/08/2025 10:52:16 CBC w/ auto diff [address] [place] [address] (Lab), [address] [place] [address], [address], 04/08/2025 10:52:16 TSH + free T4, serum [address] [place] [address] (Lab), [address] [place] [address], [address], 04/08/2025 10:52:16 vitamin D, 25-hydrox y, total, serum [address] (Lab), [address] [place] [address] 162, [place], [address], 07/29/2025 10:09:26 lipid panel, serum 2024 025 [facility] (Lab), [address] [place] [address] [address], [place], [address], 04/01/2025 13:21:27 CMP, serum or plasma 2024 025 [facility] (Lab), [address] [place] [address], [place], [address], 04/01/2025 13:21:32 CBC w/ auto diff 2024 025 [facility] (Lab), [address] [place] [address], [place], [address], 04/01/2025 12:18:09 TSH + free T4, serum [address] (Lab), [address] [place] [address], [place], [address], 07/29/2025 10:09:25 Referral ophthalmo logist referral - Please call patient to schedule an appointme nt. Thank you. 2024 025 [place] [address] Ronnie Garcia, [address], [place], [address], 08/04/2025 10:08:07 Procedures upper endoscopy procedure (EGD) (PROC) 2023 024 [facility] (Pre-Screen), [address] [place] [address], [address], 12/02/2024 13:57:55 Surgeries None recorded. Imaging CT, chest, w/o contrast 2024 026 Not available 09/18/2025 11:41:10 CT, chest, w/o contrast - Updated order for 5. 2024 [facility] (One Call Scheduling), [address] [place], [address], 08/22/2025 12:40:27 Medication Orders albuterol sulfate HFA 90 mcg/actua tion aerosol inhaler 2024 [facility], [address] [place] [address], [address], 09/18/2025 11:41:17 ipratropi um bromide 42 mcg (0.06 %) nasal spray 2024 025 [facility]61, [address] [place] [address], [address], 09/18/2025 11:41:18 cholecalc iferol (vitamin D3) 1,250 mcg (50,000 unit) capsule 2024 [facility], [address] [place] [address], [address], 04/08/2025 10:52:11 albuterol sulfate HFA 90 mcg/actua tion aerosol inhaler 2024 025 [facility], [address] [place] [address], [address], 12/19/2024 12:02:44 ipratropi um bromide 42 mcg (0.06 %) nasal spray 2024 025 [facility] 176, [address] [place] [address], [address], 12/19/2024 12:02:44 Patient TargetsNo targets recorded. Patient Instructions Encounter Date Encounter Id Patient Instructions Last Modified By Organization Details Last Modified Time 10/28/2024 [id number] PT WITH GERD SX . NEED TO R/P PUD/ H. PYLORI . RECOMMEND AN EGD RISKS BENEFITS AND COMPLICATIONS WERE EXPLAINED TO PT . ( BLEEDING , PERFORATION , INFECTION , ) PT VERBALIZES UNDERSTANDING AND IS WILLING TO PROCEDE . 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 Thank you. Referring Physician: Marcin Bhakta, Internal Medicine, Encounter Date: 12/05/2024 Results Created Date Observation Date Name Description Value Unit Range Abnormal Flag Note LastModifiedBy Organization Detail LastModifiedTime 10/01/2010/01/2024 XR, chest , 1 view No observ ation record ed. [address] [place], [address], 12/03/2024 10:08:23 10/01/20 24 10/01/2024 CT, abdom en + pelvi s, w/o contr ast No observ ation record ed. [address] [place], [address], 12/03/2024 10:08:23 11/19/20 24 11/19/2024 US, echoc ardio gram, trans thora cic, compl ete No observ ation record ed. [address] [facility] [address], [place], [address], 12/18/2024 16:04:10 12/19/19 25 12/18/2024 compl ete PFT w/ post [facility] hodil ator julita metry * No observ ation record ed. [facility] (One Call Scheduling) [address] [place], [address], 12/19/2024 08:27:59 08/22/20 25 08/22/2025 CT, chest , w/o contr ast No observ ation record ed. [address], [place], [address], 09/12/2025 15:06:21 Result Notes None recorded. Problems Name Problem SNOMED Code Status Onset Date Resolution Date Notes Provider Name and Address Organization Details Recorded Time Hyperlipidemia 38503612 Active 2023 Filippo Martines MD [address], [place], [address], [place] [facility] 5 09:39:24 Mixed anxiety and depressive disorder 019284661 Active 2023 Filippo Martines MD [address], [address], [place], [address], [place] [facility] 5 09:38:45 Primary erectile dysfunction 268693361 Active 2023 Filippo Martines MD [address], [address], [place], [address], [place] [facility] 5 09:38:27 Malignant neoplasm of prostate 378714403 Active 2023 Filippo Martines MD [address], [address], [place], [address], [place] [facility] [facility] 5 09:39:01 Vitamin D deficiency 16581866 Active 2023 Filippo Martines MD [address], [address], [place], [address], [place] [facility] 5 09:38:23 Bilateral cataracts 91470902 Active 2023 Filippo Martines MD [address], [place], [address], [place] [facility] 5 09:40:00 Posterior rhinorrhea 61620069 Active 2023 Filippo Martines MD [address], [address], [place], [address], [place] [facility] 5 09:38:28 Eosinophilic esophagitis 929678296 Active 2024 Filippo Martines MD [address], [place], [address], [facility] 5 09:39:57 Mild chronic obstructive pulmonary disease 295225501 Active 2024 Filippo Martines MD [address] [employer], [place] [address], [place], [address], [facility] 5 09:38:53 Gastroesophage al reflux disease without esophagitis 187324605 Active 2024 Filippo Martines MD [address] [employer], [place] [address], [place], [address], [facility] 5 09:39:30 Lumbar spondylosis 807284011 Active 2024 Filippo Martines MD [address], [place] [address], [place], [address], [facility] 5 09:39:02 Solitary nodule of lung 398807931 Active 2024 Filippo Martines MD [address], [place] [address], [place], [address], [facility] 11:33:04 Notes:Medical History: Anxie ty/Depression Bilateral cataracts COVID infection Rhinitis to multiple environmental allergens with postnasal drip IgE 1532 IU/mL Eosinophils 460/uL Hypogammaglobulinemia (IgG3) AAT PiM_ 107 mg% Mild COPD EF 65% Mixed hyperlipidemia Eosinophilic esophagitis on dupilumab URSULA with Schiatzki's ring & esophagitis Hepatic steatosis Right renal cyst Prostate ca ED Vit D insufficiency Scoliosis Thoracolumbar spondylosis Procedure History: T&A 1963 Left ulnar/radial pins/plates placement 1979, 1980 Left ulnar/radial pins/plates removal 1981 Radical prostatectomy & radiotherapy 2013 EGD 2024 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 Procedures Surgical History Date Name Laterality Status Provider Name and Address Organization Details Recorded Time [facility] 08/22/2024 09:56:45 Hemorrhoidectomy completed ESTEBAN Astudillo [facility] 08/22/2024 09:57:26 Tonsillectomy completed Tiffany Cunha MA [facility] 08/22/2024 09:57:35 biopsy of prostate completed Tiffany Cunha MA [facility] 08/22/2024 09:57:58 Imaging Results None recorded. Procedure Notes None recorded. Medical Equipment None Reported. Allergies No known drug allergies Medications Name Sig Start Date Stop Date Status Note LastModified by Organization Details LastModified Time cyclobenzap rine 10 mg tablet TAKE 1 TABLET BY MOUTH ONCE DAILY NEEDED active Not Available Not Available No t Available atorvastati n 40 mg tablet TAKE 1 TABLET BY MOUTH ONCE DAILY active Not Available Not Available No t [...] sulfate HFA 90 mcg/actuati on aerosol inhaler Inhale 1 puff every 4 hours by inhalatio n route as needed. 2024 active Not Available Not Available Not Avai lable ipratropium bromide 42 mcg (0.06 %) nasal spray [place] 1 spray 4 times a day by intranasa l route as needed. 2024 active Not Available Not Available Not Avai lable fluticasone propionate 50 mcg/actuati on nasal spray,suspe [...] 1 capsule every week by oral route. 2024 active Not Available Not Available Not Avai lable PreviDent 5000 Booster Plus 1.1 % dental paste 02/16 completed Not Available Not Available Not Available Shingrix (PF) 50 mcg/0.5 mL intramuscul ar suspension, kit 02/16 completed Not Available Not Available Not Available Fluzone Quad 60 mcg (15 mcg x 4)/0.5 mL IM suspension 02/16 completed Not Available Not Available Not Available dupilumab 300 mg/2 mL subcutaneou s pen injector Inject 300 mg every week by subcutane ous route. 2024 active Not Available Not Available Not Avai lable Eohilia 2 mg/10 mL oral suspension in packet Take 10 mL twice a day by oral route for 90 days. 12/23 completed Not Available Not Available Not Available Vitals Date Recorded Body height Body mass index (BMI) Body weight Body temperature Heart rate Systolic And Diastolic Provider Name and Address Organization Details Last Updated DateTime 5 170.18 cm 26.9 kg/m2 45461.8 9 g 97.6 [degF] 90 /min 128/80 mm[Hg] Linseyandi GuzmanClarkstonRICARDO champagne [facility] 5 10:56:45 Date Recorded Heart rate Respiratory rate Provider N amie and Address Organization Details Last Updated DateTime 12/19/2024 85 /min 14 /min Filippo Martines MD [address] [place], [address], [place] [employer] [facility] [employer] 12/19/2024 12:09:28 Date Recorded Body height Body mass index (BMI) Body weight Body temperature Heart rate Oxygen saturation Oxygen saturation in Arterial blood by Pulse oximetry Systolic And Diastolic Provider Name and Address Organization Details Last Updated DateTime 5 170.18 cm 27.1 kg/m2 45621.4 8 g 97.3 [degF] 85 /min 97 % 97 % 118/66 mm[Hg] Blanche Radford MA [facility] [employer] 5 11:10:43 Date Recorded Body height Body mass index (BMI) Body weight Body temperature Heart rate Systolic And Diastolic Provider Name and Address Organization Details Last Updated DateTime 5 170.18 cm 27.1 kg/m2 00974.4 8 g 97.5 [degF] 78 /min 118/78 mm[Hg] Linsey Brown RICARDO [facility] 5 10:11:13 Date Recorded Heart rate Respiratory rate Provider N amie and Address Organization Details Last Updated DateTime 09/18/2025 77 /min 16 /min Filippo Martines MD [address], [address], [address], [facility] [employer] 09/18/2025 11:41:56 Date Recorded Body height Body mass index (BMI) Body weight Body temperature Heart rate Oxygen saturation Oxygen saturation in Arterial blood by Pulse oximetry Systolic And Diastolic Provider Name and Address Organization Details Last Updated DateTime 5 170.18 cm 27.6 kg/m2 38862.2 6 g 98.2 [degF] 77 /min 98 % 98 % 140/88 mm[Hg] Blanche Radford MA [facility] 5 11:23:42 Date Recorded Body height Body mass index (BMI) Body weight Heart rate Oxygen saturation Oxygen saturation in Arterial blood by Pulse oximetry Systolic And Diastolic Provider Name and Address Organization Details Last Updated DateTime 4 170.18 cm 27.3 kg/m2 82174.0 7 g 76 /min 99 % 99 % 122/86 mm[Hg] RICARDO Boone [facility] [employer] [facility] 4 10:57:02 Social History Question Answer Notes LastModified by Organization Details LastModified Time Tobacco Smoking Status Former Smoker Tiffany Cunha MA [facility] 08/22/2024 09:54:46 What Is Your Level Of Caffeine Consumption? Moderate Information not available 08/22/2024 In The 14 Days Before Symptom Onset, Have You Had Close Contact With A Laboratory-conf irmed COVID-19 While That Case Was Ill? No Information not available 08/22/2024 In The 14 Days Before Symptom Onset, Have You Had Close Contact With A Person Who Is Under Investigation For COVID-19 While That Person Was Ill? No Information not available 08/22/2024 What Type Of Diet Are You Following? REGULAR Information not available 08/22/2024 Do You Have An Electrostatic Air Filter? Yes Information not available 10/15/2024 Have There Been Any Changes To Your Family Or Social Situation? No Information not available 08/22/2024 When Did You Quit Smoking? 16+yearssincelast cigarette Information not available 08/22/2024 Do You Have A Humidifier? No Information not available 10/15/2024 Do You Use Insect Repellent Routinely? No Information not available 08/22/2024 Where Do You Live? [facility] Information not available 08/22/2024 Do You Have Moisture Problems In Your Home? No Information not available 10/15/2024 What Was The Date Of Your Most Recent Tobacco Screening? 09/18/2025 Information not available 09/18/2025 Do You Have Any Pets? No Information [...] Ppd Information not available 12/05/2024 Do You Use Sunscreen Routinely? No Information not available 08/22/2024 Have You Recently Traveled Abroad? No Information not available 08/22/2024 Do You Have Any Dietary Restrictions? No Information not available 08/22/2024 Sex: Unknown Functional Status Question Answer Note LastModified by Organizat ion Details LastModified Time Do you use any illicit or recreational drugs? No Information not available 08/22/2024 Do you or have you ever used any other forms of tobacco or nicotine? No Information not available 12/05/2024 What is your level of alcohol consumption? Occasional Information not available 08/22/2024 Are you currently employed? No Disability Information not available 08/22/2024 Have you been exposed to chemicals or toxins? Yes Information not available 10/15/2024 What is your exercise level? None Information not available 08/22/2024 Mental Status Question Answer Note LastModified by Organization D etails LastModified Time Do you feel stressed (tense, restless, nervous, or anxious, or unable to sleep at night)? [id number] Information not available 08/22/2024 Family History Relationship Description Onset Age of this Age Resolved Age Notes LastModified by Organization Details LastModified Time Mother Malignant neoplasm of breast [email or web address] Not available 2023 09:52:36 Father Malignant neoplasm of pancreas [email or web address] Not available 2023 09:53:02 Sister Malignant neoplasm of breast [email or web address] Not available 2023 09:53:19 Maternal Grandfather Myocardial infarction Not available 10/15 14:45:41 Maternal Grandmother Spondylosis Not available 14:46:08 Brother Depressive disorder Not available 2023 14:48:31 Brother Suicide ny5 Not available 1 12/15/2023 14:48:38 Medical History No medical history recorded. Immunizations Vaccine Type Date Status Note Provider Nam e and Address Organization Details Recorded Time Pneumococcal conjugate PCV20, polysaccharide FWB532 conjugate, adjuvant, PF completed RICARDO [place], [place] [facility] [employer] [facility] 12/05/2024 10:49:08 Past Encounters Encounter ID Performer Location Encounter Start Date Encounter Closed Date Diagnosis/Indication Diagnosis SNOMED-CT Code Diagnosis ICD10 Code Diagnosis IMO Codes Diagnosis Note [id number] Marcin schaefer MD [facility] [address] [address] 08/22/2024 09:20:02 08/22/2024 11:09:26 Screening - NAD 779790099 Z13.9 C-scope: States that he did get [...] his understand ing of the above Hyperlipidemia 74969674 E78.5 On atorvastat in 20mg dailyGet labs Low back pain 515726499 M54.50 On baclofen 10mg as needed 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/p MRI 08/06/2024 States that he is on disability , and will need his paperwork, last done in 04/2024 by his prior PCP Dr Cy Mcdonald hageal reflux disease without esophagitis 989736792 K21.9 On pantoprazo le 40mg daily, take as needed, get EGD done Mixed anxi ety and depressive disorder 688951731 F41.8 On buspirrone 15mg tidDoes well on thisNot suicidal or homicidalD oes not want a psychiatry referral Primary er ectile dysfunction 019671636 N52.9 On tadalafil 20mgTake as needed Former hea vy tobacco smoker 0863470029 85159 Z87.891 Get [place] AAA Chronic cough 58237500 R 05.3 On albuterol as neededOn flonaseGet CT chest and get pulmonary apt Screening for cardiovascular system disease 985050231 Z13.6 Malignant neoplasm of prostate 158329419 C61 S/p prostectom ySees Dr Aguileras PSA thru his office Vitamin D deficiency 347 22737 E55.9 Bilateral cataracts 9572 2003 H26.9 Will refer to eye MD Screening for osteoporosis 321044880 Z13.820 Wants to check for OP and wants a DEXA ordered 08/22/2024 [id number] Marcin schaefer MD [facility] Internal Med [facility] [address] [place] [address] 08/28/2024 13:49:16 08/28/2024 14:05:15 [id number] Filippo Martines MD [facility] Pulmonolo gy [place] [address] [place] [address] [address] [place] [address] 10/15/2024 14:02:24 11/18/2024 11:36:38 Solitary nodule of lung 819640103 R91.1 Dyspnea on exertion 6084 5006 R06.09 R05.9 T78.40XA D89.9 Posterior rhinorrhea 758 10248 R09.82 [id number] Barbara Reddy MD [facility] General Surgery [address] [facility], [facility] [address] [place] [address] 10/28/2024 10:36:07 10/28/2024 11:27:26 Gastroesophageal reflux disease without esophagitis 480254098 K21.9 [id number] Marcin schaefer MD [facility] Internal Med [facility] [address] [facility], [address] [place] [address] 12/05/2024 10:43:47 12/05/2024 11:57:27 Screening - NAD 623910745 Z13.9 C-scope: States that he did get [...] his understand ing of the above Hyperlipidemia 51898897 E78.5 On atorvastat in 40mg dailyGet labs Low back pain 095793546 M54.50 On baclofen 10mg as needed 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/p MRI 08/06/2024 States that he is on disability , and will need his paperwork, last done in 04/2024 by his prior PCP Dr Benoit Gastrobeaop hageal reflux disease without esophagitis 473843961 K21.9 On pantoprazo le 40mg dailyEGD 12/02/2024 Dr Fulton on Eohilia as per Dr Reddy Mixed anxi ety and depressive disorder 746977477 F41.8 On buspirone 15mg tidDoes well on thisNot suicidal or homicidalD oes not want a psychiatry referral Primary er ectile dysfunction 727200257 N52.9 On tadalafil 20mgTake as needed Former hea vy tobacco smoker 6855196947 52912 Z87.891 [place] AAA 09/09/2024 : Neg Chronic cough 97767248 R 05.3 On albuterol as neededOn flonaseOn ipratropoi um CT chest 09/09/2024 Dr Martines 10/15/2024 Malignant neoplasm of prostate 789136401 C61 S/p prostectom ySees Dr Shukla PSA thru his officeIs to get PET CT 12/06/2024 Vitamin D deficiency 347 06394 E55.9 On OTC vit dRepeat the VIT D Bilateral cataracts 9572 2004 H26.9 Will refer to eye MD Screening for osteoporosis 549431515 Z13.820 Wants to check for OPDEXA;; Normal Screening for cardiovascular system disease 125194288 Z13.6 S/p Zaida Nix [facility] 12/03/2024 [id number] Filippo Martines MD [facility] Pulmonolo gy [place] [address] 12/19/2024 10:32:25 12/19/2024 12:21:29 Solitary nodule of lung 835322608 R91.1 Posterior rhinorrhea 758 92648 R09.82 Mild chron ic obstructive pulmonary disease 900669588 J44.9 [id number] Marcin schaefer MD [facility] Internal Med [place] [address] 04/08/2025 09:55:20 04/08/2025 10:52:25 Screening - NAD 587418522 Z13.9 C-scope: States that he did get this [address] Patton, get the report Get yearly flu shotGet tdap if not doneGet shingrix vaccineGet pneumonia vaccine if not doneCan do COVID 19 vaccineCan do RSV vaccineWan ts to hold off on these 08/22/2024 , wants to see if his pharmacy has given this OV 04/08/2025 : He did at the end of the visit apologize and did state that 'I was rough on you!' RTC in 6 months, do labs, ER if worse, he did verbalize his understand ing of the above Hyperlipidemia [id number] E78.5 On atorvastat in 40mg dailyMore diet and exercise is needed!Get labs Low back pain [id number] M54.50 On baclofen 10mg as needed 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/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 08/06/2024 States that he is on disability , and will need his paperwork, last done in 04/2024 by his prior PCP Dr Benoit Gastrobeaop hageal reflux disease without esophagitis [id number] K21.9 On pantoprazo le 40mg dailyEGD 12/02/2024 Dr Haile on Eohilia as per Dr EdwardsOn dupilumab injection for eosinophil ic esophagiti s Mixed anxi ety and depressive disorder [id number] F41.8 On buspirone 15mg tidDoes well on thisNot suicidal or homicidalD oes not want a psychiatry referral Primary er ectile dysfunction [id number] N52.9 On tadalafil 20mgTake as needed Former hea vy tobacco smoker [id number] 92455 Z87.891 [place] AAA 09/09/2024 : Neg Chronic cough 11123812 R 05.3 On albuterol as neededOn flonaseOn ipratropoi um CT chest 09/09/2024 Dr Martines 10/15/2024 , next apt 09/18/2025 Malignant neoplasm of prostate [id number] C61 S/p prostectom ySees Dr Shukla PSA thru his officeIs to get PET CT 12/06/2024 Vitamin D deficiency [id number] 64781 E55.9 On OTC vit dRepeat the VIT D Bilateral cataracts [address] Garcia 01/17/2025 Screening for osteoporosis [id number] Z13.820 Wants to check for OPDEXA;; Normal Screening for cardiovascular system disease [id number] Z13.6 S/p ECHODr Nix [facility] 12/03/2024 Hyperglycemia 08832620 R 73.9 70781 Get labs [id number] Filippo Martines MD [facility] [address] [phone] 09/18/2025 10:58:18 09/22/2025 12:24:24 Solitary nodule of lung [id number] R91.1 Posterior rhinorrhea 758 17919 R09.82 Mild chron ic obstructive pulmonary disease [id number] J44.9 Health Concerns Section Related Observation LastModified by Organization Detai ls LastModified Time None Recorded Concern Status LastModified by Organization Details LastModified Time None Recorded Advance Directives Directive None Recorded Payers Insurance Date Sequence Insurance Name Policy Number Policy Romero Covered Member ID Romero Member ID Guarantor Name 02/17/2024 1 UNSPECIFIED REMIT PAYOR Skip Levy 09/22/2025 1 [employer] [facility] [place] [facility] Skip Levy [id number] OI Skip Levy 09/18/2025 3 [facility] (MEDICARE SUPPLEMENT) Skip Levy [id number] Skip Levy 09/18/2025 1 [employer] - [place] PRIOR TO 21 [facility] [place] [facility] Skip Levy [id number] Skip Long [employer] 09/18/2025 2 [place] Skip Levy Jr [id number] Skip Levy Notes Date Note Type Note Provider Name and Address Organization Details Recorded Time 10/28/2024 text/html ROS as noted in the HPI PT WAS SEEN IN THE OFFICE TODAY FOR GERD . PT DENIES ABD PAIN /N/V. PT ADMITS TO PYROSIS. HE DENIES N/V. PT HAS COUGHING . HE SAW DR MARTINES . HE WAS RXED FLUTICASONE AND ALBUTEROL . . PT DENIES WT LOSS BLEEDING . Barbara Reddy MD [address], [address], [place], [address], [employer] 10/28/2024 11:29:13 12/05/2024 text/html OV 08/22/2024:Here to establish care Present Hx:HLDGERDEDChronic coughEx smokerHx [...] does need to do imaging as his [employer] requires this done for [employer] OV 12/05/2024: Here for his f/u apt, he is doing well today Marcin Bhakta MD [address], [address], [place], [address], [employer] [facility] [employer] 12/18/2024 18:25:00 12/19/2024 text/html Primary care/Referring provider: Marcin Bhakta MD Patient is here to go over his lab data and PFT as part of his shortness of breath evaluation/management. Initial development of shortness of breath: 2018Duration of shortness of breath: 7 yearsCondition of shortness of breath: stableTiming of shortness of breath: night fallFrequency: up to 7 times a dayLimits activities: yesAggravating factors: walking, lifting, mowingAlleviating factors: rest Modified [employer] (mMRC) Dyspnea Scale - Grade 1Grade 0 I only get breathless with strenuous exercise .Grade 1 I get short of breath when hurrying on the level or walking up a slight hill .Grade 2 I walk slower than people of the same age on the level because of breathlessness or have to stop for breath when walking at my own pace on the level .Grade 3 I stop for breath after walking about 100 yards or after a few minutes on the level .Grade 4 I am too breathless to leave the house or I am breathless when dressing . Treatment history: Albuterol HFA as needed since 2018 Other symptoms:Drooling: noDysarthria: noNeck pain: noOdynophagia: noDysphagia: noWeak mastication: noFacial weakness: noNasal speech: noProtruding tongue: noProductive cough: clearWheezing: yesChest tightness: yesOrthopnea: noFrequent throat clearing or swallowing: yesPalpitations: noHeartburn: yesEdema: no Environmental exposures:Nicotine smoke: 1 ppd 3362-5114 = 12 pack yearsPaint: noDye: noDust mites: [...] in the afternoon when circumstances permit - 2Sitting and talking to someone - 0Sitting quietly after lunch without alcohol - 0In a car, while stopped for a few minutes in the traffic - 0TOTAL SCORE 2Subjectively, patient has a slight chance of dozing. Filippo Martines MD [address], [address], [place], [address], [facility] [employer] [facility] 12/19/2024 12:12:56 04/08/2025 text/html OV 08/22/2024:Here to establish care Present Hx:HLDGERDEDChronic coughEx smokerHx [...] does need to do imaging as his [employer] requires this done for [employer] OV 12/05/2024: Here for his f/u apt, he is doing well today OV 04/08/2025: Here for his f/u apt, feels well todayAt the start of his interview the patient did launch in a long and rambling tirade against 'the state of healthcare' in 'this country', his conversation was punctuated by foul language. He was particularly upset that the 'eye doctor' gave him a bill and told him that he did not have cataracts, he also stated that if 'you are not a part of the solution, you are the problem' Marcin Bhakta MD [address], [place], [address], [facility] [employer] 04/11/2025 12:39:43 09/18/2025 text/html Primary care/Referring provider: Marcin Bhakta MD CC: The Atrovent helps my nasal drainage. I rarely use the albuterol HFA because it made me cough deeply. Patient is here to go over his chest CT as part of his COPD management. Initial development of shortness of breath: 2018Duration of shortness of breath: 7 yearsCondition of shortness of breath: stableTiming of shortness of breath: night fallFrequency: up to 7 times a dayLimits activities: yesAggravating factors: walking, lifting, mowingAlleviating factors: rest Modified [employer] (mMRC) Dyspnea Scale - Grade 1Grade 0 I only get breathless with strenuous exercise .Grade 1 I get short of breath when hurrying on the level or walking up a slight hill .Grade 2 I walk slower than people of the same age on the level because of breathlessness or have to stop for breath when walking at my own pace on the level .Grade 3 I stop for breath after walking about 100 yards or after a few minutes on the level .Grade 4 I am too breathless to leave the house or I am breathless when dressing . Treatment history: Albuterol HFA as needed since 2018 Other symptoms:Drooling: noDysarthria: noNeck pain: noOdynophagia: noDysphagia: noWeak mastication: noFacial weakness: noNasal speech: noProtruding tongue: noProductive cough: clearWheezing: yesChest tightness: yesOrthopnea: noFrequent throat clearing or swallowing: yesPalpitations: noHeartburn: yesEdema: no Environmental exposures:Nicotine smoke: 1 ppd 4897-9876 = 12 pack yearsPaint: noDye: noDust mites: [...] no chance of dozing. Filippo Martines MD [address] [facility], [facility] [address], [place], [address], [facility] 09/18/2025 11:52:14
--- OUTSIDE RECORDS SUMMARY | 2025-10-03 07:13 | XMS_ITS | Clinical Summary ---
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 Gender Identity Not on file Sexual Orientation Not on file Plan of Treatment Health Maintenance Due Date Last Done Comments Colorectal Cancer Screening Colonoscopy (10 Years) 1960 Hepatitis C 1977 DTaP, Tdap and Td Vaccines ( 1 - Tdap) 1978 Pneumococcal Vaccine: 50+ Ye ars (1 of 1 - PCV) 2009 Zoster Vaccines (1 of 2) 2009 COVID-19 Vaccine (2024-2 6 season) 2025 Influenza Adult (#1) 2025 RSV Immunization or 60+ Years (1 - 1-dose 75+ series) 2034 Hepatitis A Vaccines Aged Out No long er eligible based on patient's age to complete this topic Meningococcal B Vaccine Aged Out No l onger eligible based on patient's age to complete this topic Meningococcal Vaccine Aged Out No ángel mehul eligible based on patient's age to complete this topic RSV Immunizations Under 20 Months Aged Out No longer eligible based on patient's age to complete this topic
== END 2025-10-03 07:08 | disposition home or self-care (01) ==
PROVIDERS: Visit Provider Urology
DX: C61 Malignant neoplasm of prostate (principal)
CPT/HCPCS: 78815; A9596